=== PATIENT | female | born 1950 | race Caucasian/White ===

== ENCOUNTER → 2022-04-26 12:02 | Outpatient (CLI) | payer MEDICARE, SELFPAY ==
--- NOTE | ~2022-04-26 | XR_ITS ---
XR knee RT min 4V DATE: 04/26/2022 12:22 INDICATION: Right anterior knee pain just distal to patella TECHNIQUE: 4 views including crosstable lateral COMPARISON: None FINDINGS: There is osteopenia. There is enthesopathy of the superior pole of patella at the quadricep s tendon insertion. There is a very small subtle lucency of the proximal anterior tibia with minimal overlying soft tissu e swelling. A very subtle nondisplaced cortical fracture is not completely excluded, but this may alt ernatively be normal anatomic variation of the anterior tibial tuberosity. Clinical correlation for p oint tenderness at this site is recommended. No other fracture or dislocation or joint effusion. No periosteal reaction or bone destruction. Joint spaces are relatively preserved. No radiopaque intra-articular loose body or chondrocalcinosis. IMPRESSION: Osteopenia Superior pole patellar enthesopathy Subtle linear lucency at the proximal anterior tibial tuberosity. Diffusion diagnosis includes a subt le very small nondisplaced fracture versus anatomic variant Reviewed, dictated and finalized at location B. IMPRESSION: Osteopenia Superior pole patellar enthesopathy Subtle linear lucency at the proximal anterior tibial tuberosity. Diffusion jorgito gnosis includes a subtle very small nondisplaced fracture versus anatomic varia nt
== END ==
PROVIDERS: PCP Nurse Practitioner Family; Visit Provider Nurse Practitioner Family
DX: M25.561 Pain in right knee (principal); M85.861 Other specified disorders of bone density and structure, right lower leg
CPT/HCPCS: 73564

== ENCOUNTER → 2022-12-19 09:06 | Outpatient (CLI) | payer MEDICARE, SELFPAY ==
--- NOTE | ~2022-12-19 | XR_ITS ---
XR hip LT 2V w AP pelvis DATE: 12/19/2022 09:25 INDICATION: Left hip pain, worsening. No recent injury. TECHNIQUE: AP pelvis. AP and lateral views of left hip COMPARISON: None FINDINGS: Degenerative disc disease at L4-5 and L5-S1. Normal alignment at the pubic symphysis and sacroiliac joints. Very severe left hip osteoarthritis with obliteration of the superolateral joint space, very prominen t spurring of the acetabulum and humeral head. There is mild flattening deformity of the femoral head as well as some patchy sclerotic and cystic change of the femoral head in addition to the acetabulum . Left femoral head avascular necrosis is suggested. No fracture or dislocation of the left hip is detected. Right hip joint space is relatively well preserved. 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
== END ==
PROVIDERS: PCP Nurse Practitioner Family; Visit Provider Nurse Practitioner Family
DX: M16.12 Unilateral primary osteoarthritis, left hip (principal); M51.37 Other intervertebral disc degeneration, lumbosacral region
CPT/HCPCS: 73502

== ENCOUNTER 2023-02-13 07:30 | Outpatient (RCR) | payer MEDICARE, SELFPAY ==
--- NOTE | 2022-12-27 10:32 | PTOPEVAL1 ---
Assessment and note entered by Latoya Locke, PT Evaluation Information Assessment Status Evaluation Diagnosis pain in left hip Onset chronic, 8 years ago Subjective Information Patient is 72 year old female referred to physical therapy due to left hip pain. Patient resides with in home and reports that her pain limits her ability to perform tasks in both home and community. Patient reports pain is current at 0/10 but can increase to 10/10 with mobility. Pain is primarily in anterior hip and will radiate down left anterior leg. Reported Pain Level Pain Score 0: Self Report Additional Pain Score Comments Patient reports current pain level of 0/10. Pain can increase to 10/10 in L hip with reports of radiating symptoms down front and side of leg. Pain is worsened with standing, walking and can be relieved with rest and sitting. Patient states her pain limits her from walking increased distances, performing tasks at home. Assessment PT Clinical Summary Patient is 72 year old female referred to physical therapy due to left hip pain. Patient reports pain has been chronic for the past 8 years, recent imaging reports left hip osteoarthritis and potential avascular necrosis. Patient pain ranges from 0/10 to 10/10 with pain worse during standing /activity and relieved with rest. Postural impairments noted with left hip hike in standing and decreased weight bearing on LLE. Leg length discrepancy also noted with RLE longer than LLE however patient L pelvic unable to currently achieve neutral. Decreased range of motion noted in LLE with impairments in hip internal rotation, hip flexion, and hip extension. Patient also demonstrates weakness in L hip specifically in flexors/abductors/extensors. L hip pain, weakness, and decreased ROM limit causing impairments in gait pattern at this time. Recommending skilled PT 1-2x/wk for 6 weeks to improve LLE range of motion, strength, posture in order to decrease pain and improve ability to perform mobility in home/community. Plan of Care Interventions Electrical Stimulation,Gait Training,Hot Pack/Cold Pack,Manual Therapy,Neuro Re-education,Patient/ Caregiver Education,Therapeutic Activities, Therapeutic Exercise,Ultrasound PT Services Indicated Yes Treatment Frequency and
--- NOTE | 2022-12-27 14:29 | PCPTNOTE ---
Fax send to MD for OT order to eval and treat due to bilateral hand pain.
--- NOTE | 2023-01-16 09:56 | OTOPEVAL1 ---
Assessment and note entered by Sharonda Saul OT Evaluation Information Assessment Status Evaluation Diagnosis bilateral hand pain Onset chronic Subjective Information Pt. states that at 19 years old, doctor recognized beginnings of arthritis. Pt. states within last few years increasing pain and numbness, describes fingers specifically L 1st -3rd fingers go to sleep and wakes at night to pain feels like they are in a press . Pt. describes difficulty with daily tasks including holding coffee pot and carrying mug, and donning clothing with buttons and zippers. Pt. 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 Reported Pain Level Pain Score 0: Self Report Additional Pain Score Comments Pt. describes more pain when cold and often wakes pt. up at night while sleeping due to extreme pain, reporting often 10/10 pain, like a press gripping both hands. , hand feels like it gets locking in hook position intermittently Assessment OT Clinical Summary Pt. presents with bilateral hand pain and sensation changes, primarily secondary to chronic arthritis, limiting functional laboratory secretary and decreasing ability to participate in activities requiring sustained laboratory secretary including holding dishes, holding mugs, manipulating buttons and zippers, and writing. Skilled occupational therapy intervention indicated for pain management modalities, ADL adaptations, joint protection, and therapeutic exercises. Plan of Care Interventions Therapeutic Exercise,Manual Therapy,Therapeutic Activities,Hot Pack/Cold Pack,Self-Care/Home Management,Ultrasound,Paraffin OT Services Indicated Yes Treatment Frequency and 1 x/week for 4 weeks Duration These treatments will address the objective and functional deficits as defined above. The patient will be advanced safely and appropriately in order for the patient to progress towards his/her prior level of function. Additional exercises will be introduced and as well as a comprehensive home exercise program upon discharge, if needed, ?to ensure carryover of functional gains achieved in the clinic. This treatment plan has been reviewed and agreement upon by the patient.
--- NOTE | 2023-01-16 09:59 | OPREHPOC ---
Outpatient Therapy Plan of Care This is a Multidisciplinary Plan of Care that may contain components documented by all disciplines (PT, OT, and ST.) OT Problem 1 OT Problem #1 Knowledge Deficit OT Goal 1 Goal Pt. will be independent with instructed materials Target Visit 4 OT Problem 2 OT Problem #2 Pain OT Goal 1 Goal Pt. 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 will increase L girp strength to 63 lbs 3) Pt. will increase R lateral pinch strength to 11.5 lbs 4) Pt. will increase L lateral pinch strength to 11 lbs Target Visit 4
--- NOTE | 2023-01-23 07:49 | PCPTNOTE ---
Patient did not show up for scheduled appointment this date. Called Pt and left voicemail about missed appointment. Informed Pt of upcoming appointment with Occupational therapy tomorrow, 01/24/23 @08:15.
--- NOTE | 2023-01-25 16:06 | PTOPDC ---
Assessment and note entered by Flavia De La Torre, PT Evaluation Information Assessment Status Discharge - Pt Not Presen Diagnosis pain in left hip Reported Pain Level Assessment PT Clinical Summary Carolina called and canceled all of her PT appointments. Stated she was going to go to the gym and do the exercises. She has received 5 PT sessions for L hip pain. The goals were not addressed. Discharge PT per pt request. Plan of Care PT Services Indicated No
--- NOTE | 2023-02-13 08:04 | OTOPDC ---
Assessment and note entered by Mj Costello, LENCHO/Elie, CHT Evaluation Information Assessment Status Discharge Diagnosis bilateral hand pain Onset chronic Subjective Information Pt. reports therapy has helped her a lot with adapting ADLs to be easier on her joints. She reports she no longer is waking up in the middle of the night hand pain. She states she is having an easier time with pouring from her coffee pot and carrying a coffee mug. Reports buttons and zippers are easier now too. 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 She is very pleased with the techniques she has learned at therapy. Reported Pain Level Pain Score 0: Self Report Additional Pain Score Comments Patient reporting no pain in her hands. She reports she hasn't experienced any pain in the last week. Just reports intermittent stiffness in her hands upon waking up and even notes that this isn't everyday. Assessment OT Clinical Summary Patient has participated in 5 outpatient OT sessions focused on bilateral hand OA. Treatments have included education on adaptive equipment and techniques for ADLs, modalities, manual therapy, and gentle sow farm manager strengthening exercises. She has made excellent progress and is no longer experiencing hand pain. She has incorporated the adaptive techniques into her everyday life. No further skilled OT indicated at this time. Plan of Care OT Services Indicated No
== END 2023-02-14 08:23 | disposition home or self-care (01) ==
LOC: ANHOT 07:30
PROVIDERS: PCP Nurse Practitioner Family; Visit Provider Nurse Practitioner Family
DX: M25.541 Pain in joints of right hand (principal); M25.542 Pain in joints of left hand; M25.552 Pain in left hip
CPT/HCPCS: 97014; 97018; 97110; 97140; 97162; 97166; 97530; G0283

== ENCOUNTER 2023-09-13 11:57 | Emergency (ER) | payer MEDICARE, SELFPAY ==
[2023-09-13 11:59] VITALS: BP 166/78; PULSE 64; RESP 20; TEMP 36.4; O2SAT 100
--- NOTE | 2023-09-13 12:05 | ECG_ITS ---
Measurements Intervals [place] Rate: 66 P: 56 ME: 150 QRS: -18 QRSD: 94 T: 42 QT: 372 QTc: 390 Interpretive Statements SINUS RHYTHM LOW QRS VOLTAGE IN PRECORDIAL LEADS BORDERLINE T WAVE ABNORMALITY- ANTERIOR LEADS BASELINE ARTIFACT- I, II, III, AVR, AVL, AVF, V4-V6 BORDERLINE ECG NO PREVIOUS ECG AVAILABLE FOR COMPARISON Electronically Signed On 09-13-2023 12:25:02 BRICK TENDER by Shashank Bojorquez D.O.
[2023-09-13 12:45] LABS: Basophils Absolute Auto 0.1 K/mm3 (0.0-0.1); Basophils Percent Auto 1.3 % (0.2-1.2); Eosinophils Percent Auto 0.8 % (0-4.4); Hematocrit 41.3 % (37.0-47.0); Hemoglobin 13.8 g/dL (12.0-15.0); Immature Granulocyte Absolute 0.01 K/mm3 (0.00-0.031); Immature Granulocyte Percent A 0.2 % (0-0.5); Lymphocytes Absolute Auto 1.73 K/mm3 (0.9-3.2); Lymphocytes Percent Auto 33.2 % (18.3-44.2); Mean Corpuscular HGB Conc 33.4 g/dl (32-36); Mean Corpuscular Hemoglobin 31.2 pg (26-34); Mean Corpuscular Volume 93.2 fl (80-100); Mean Platelet Volume 9.5 fl (7.4-10.4); Monocytes Absolute Auto 0.6 K/mm3 (0.1-0.6); Monocytes Percent Auto 11.3 % (2.6-8.5); Neutrophils Absolute Auto 2.8 K/mm3 (1.3-6.7); Neutrophils Percent Auto 53.2 % (45.5-73.1); Platelet Count Result 271 k/mm3 (150-375); Red Blood Count 4.43 M/mm3 (4.2-5.4); Red Cell Distribution Width 12.9 % (11.5-14.5); White Blood Count 5.2 K/mm3 (4.5-10.0)
[2023-09-13 13:04] LABS: Alanine Aminotransferase 18 U/L (6-35); Albumin Level 4.7 g/dL (3.5-5.1); Alkaline Phosphatase 76 U/L (38-126); Anion Gap 7 mmol/L (8-16); Aspartate Amino Transferase 32 U/L (14-36); Bilirubin,Total 0.6 mg/dL (0.2-1.3); Blood Urea Nitrogen 18 mg/dL (7-17); Calcium 9.6 mg/dL (8.4-10.2); Carbon Dioxide 29 mmol/L (22-30); Chloride 102 mmol/L (98-107); Estimated CRCL calculation 61 ml/min; Estimated Glomerular Filt Rate > 60; Glucose 127 mg/dL (65-110); Potassium 3.7 mmol/L (3.4-5.0); Sodium 138 mmol/L (137-145)
[2023-09-13 16:10] VITALS: BP 148/68; PULSE 80; RESP 16; TEMP 36.7; O2SAT 98
--- NOTE | 2023-09-13 16:21 | ED.GENADULT ---
HPI - General Adult General Chief complaint: Recheck/Abnormal Lab/Rx Stated complaint: sent by PCP for low potassium Time Seen by Provider: 09/13/23 16:04 Source: patient Mode of arrival: ambulatory Limitations: no limitations History of Present Illness HPI narrative: This is a 72 Your female who presents to the ED for lab recheck. She was told by her PCP that her potassium was low and needed to go to the ER. She has been having some morning time shakiness and has been feeling anxious lately. She is denying any chest pain, shortness of breath, cough, palpitations, leg swelling. She states she is currently completely asymptomatic. Related Data Home Medications Medication Instructions Recorded Confirmed ascorbic acid (vitamin C) 1,000 mg 1 g PO DAILY 05/03/21 06/12/23 tablet aspirin 81 mg tablet,delayed 81 mg PO DAILY 05/03/21 06/12/23 release cholecalciferol (vitamin D3) 25 25 mcg PO DAILY 05/03/21 06/12/23 mcg (1,000 unit) capsule multivitamin 1 tablet PO DAILY 05/03/21 06/12/23 Allergies Allergy/AdvReac Type Severity Reaction Status Date / Time prednisone Allergy Unknown Hives Verified 09/13/23 11:58 lisinopril AdvReac Severe Weakness Verified 09/13/23 11:58 Review of Systems Review of Systems: All systems as dictated in [facility] Past Medical History Medical History (Updated 09/13/23 @ 17:17 by Jerome Harris PA-C) Acute pain of right knee Arthralgia of hands, bilateral Arthritis BMI 25.0-25.9,adult BMI 26.0-26.9,adult BMI 27.0-27.9,adult Colon cancer screening Elevated fasting glucose Encounter to establish care Fall Fatigue HTN (hypertension) Hyperlipidemia Hypokalemia Left hip pain Osteoarthritis of left hip Shaking Use of cane as ambulatory aid Vitamin D deficiency Surgical History Surgical History H/O removal of cyst Hx of tonsillectomy Family History Family History Mother Asthma Sibling Asthma Cancer Father Diabetes mellitus Heart disease Social History Social History Smoking status: Former smoker Alcohol intake: never Substance use: never Lack of Transportation: No Lack of Food: Never True Currently Unemployed: YES Living arrangements: with family Occupation/Education: retired Exam Narrative: GENERAL: Well-appearing, well-nourished, and in no acute distress. HEAD: Normocephalic, atraumatic. EYES: PERRLA and EOMI. ENT: Nares clear, no rhinorrhea or epistaxis. Mucous membranes moist. Oropharynx without tonsillar hypertrophy exudate or other lesions. NECK: Supple. No adenopathy or masses. CHEST: No respiratory distress. Clear to auscultation. No wheezes rales or rhonchi HEART: Regular rate and rhythm. No murmur heard. Normal peripheral pulses. ABDOMEN: Soft, nontender, nondistended, normal active bowel sounds. MSK: Normal range of motion. No edema. SKIN: Warm, dry, no rash. NEURO: Alert and oriented x3. No focal deficits. PSYCH: Normal mood and affect. Course Vital Signs Vital signs: Vital Signs Temperature 97.6 F 09/13/23 11:59 Pulse Rate 64 09/13/23 11:59 Respiratory Rate 20 09/13/23 11:59 Blood Pressure 166/78 H 09/13/23 11:59 Pulse Oximetry 100 09/13/23 11:59 Oxygen Delivery Room Air 09/13/23 11:59 Temperature 97.8 F 09/13/23 17:20 Pulse Rate 74 09/13/23 17:20 Respiratory Rate 16 09/13/23 17:20 Blood Pressure 150/70 H 09/13/23 17:20 Pulse Oximetry 98 09/13/23 17:20 Oxygen Delivery Room Air 09/13/23 11:59 Medical Decision Making [facility] Narrative Medical decision making narrative: this is a 72-year-old female who presents to the ED for lab recheck. She was told her potassium was low. She is currently asymptomatic. Vitals are. Her EKG does not show any evidence of acute hypokalemia. Sinus rhythm.
[2023-09-13 17:20] VITALS: BP 150/70; PULSE 74; RESP 16; TEMP 36.6; O2SAT 98
== END 2023-09-13 17:21 | disposition home or self-care (01) ==
PROVIDERS: Emergency Medicine; Emergency Provider Physician Assistant; PCP Nurse Practitioner Family
DX: Z03.89 Encounter for observation for other suspected diseases and conditions ruled out (principal); I10 Essential (primary) hypertension; E78.5 Hyperlipidemia, unspecified; E55.9 Vitamin D deficiency, unspecified; M16.12 Unilateral primary osteoarthritis, left hip; Z87.891 Personal history of nicotine dependence; R94.31 Abnormal electrocardiogram [ECG] [EKG]; Z79.82 Long term (current) use of aspirin
CPT/HCPCS: 36415; 80053; 83735; 85025; 93005; 99283

== ENCOUNTER 2023-09-17 08:57 | Emergency (ER) | payer MEDICARE, SELFPAY ==
--- NOTE | ~2023-09-17 | CT_ITS ---
EXAMINATION: CT BRAIN W/O DATE: 09/17/2023 12:20 INDICATION: Altered mental status. TECHNIQUE: Computed tomography (CT) of the head was performed without intravenous contrast. The dose- length product was 605.33 mGy-cm. Automated exposure control and iterative reconstruction technique w ere employed. COMPARISON: No prior studies for comparison. FINDINGS: Normal brain parenchymal volume for age. Normal miller-white differentiation. No acute intrac ranial hemorrhage, infarction, mass or mass effect. No ventriculomegaly or midline shift. Midline sagittal images demonstrate a normal corpus callosum, c raniovertebral junction and sella turcica. Basilar cisterns are patent. Paranasal sinuses and mastoids are pneumatized. No depressed skull fractures. IMPRESSION: 1. No acute intracranial abnormality. Reviewed, dictated and finalized at location L. TIC WELDER
[2023-09-17 09:01] VITALS: BP 162/74; PULSE 67; RESP 18; TEMP 36.6; O2SAT 100
[2023-09-17 11:12] VITALS: BP 160/66; PULSE 68; RESP 18; O2SAT 96
[2023-09-17 11:13] VITALS: PULSE 69
[2023-09-17 12:14] LABS: Basophils Absolute Auto 0.1 K/mm3 (0.0-0.1); Basophils Percent Auto 0.9 % (0.2-1.2); Eosinophils Percent Auto 0.3 % (0-4.4); Hematocrit 41.4 % (37.0-47.0); Immature Granulocyte Absolute 0.01 K/mm3 (0.00-0.031); Immature Granulocyte Percent A 0.1 % (0-0.5); Lymphocytes Absolute Auto 1.64 K/mm3 (0.9-3.2); Lymphocytes Percent Auto 24.3 % (18.3-44.2); Mean Corpuscular HGB Conc 33.8 g/dl (32-36); Mean Corpuscular Hemoglobin 31.5 pg (26-34); Mean Corpuscular Volume 93.2 fl (80-100); Mean Platelet Volume 9.3 fl (7.4-10.4); Monocytes Absolute Auto 0.7 K/mm3 (0.1-0.6); Monocytes Percent Auto 9.8 % (2.6-8.5); Neutrophils Absolute Auto 4.4 K/mm3 (1.3-6.7); Neutrophils Percent Auto 64.6 % (45.5-73.1); Platelet Count Result 252 k/mm3 (150-375); Red Blood Count 4.44 M/mm3 (4.2-5.4); Red Cell Distribution Width 12.9 % (11.5-14.5); White Blood Count 6.8 K/mm3 (4.5-10.0)
[2023-09-17 12:21] LABS: Appearance Urine Clear (Clear); Bacteria Urine None Seen /hpf; Bilirubin Urine Negative (Negative); Blood Urine Negative (Negative); Color Urine Yellow (Yellow); Glucose Urine UA Negative (Negative); Ketones Urine 1+ mg/dL (Negative); Leukocyte Esterase Ur Trace LEU/UL (Negative); Nitrate Urine Negative (Negative); Non Pathogenic Casts 0-2; Protein Urine Negative (Negative); Squamous Epithelial Cell Urine None seen /hpf (Few); Urobilinogen Urine 0.2 mg/dL (<2.0); WBC Urine 0-5 /hpf
[2023-09-17 12:22] LABS: Add Urine Microscopic? YES
[2023-09-17 12:26] LABS: Alanine Aminotransferase 18 U/L (6-35); Albumin Level 4.4 g/dL (3.5-5.1); Alkaline Phosphatase 66 U/L (38-126); Anion Gap 8 mmol/L (8-16); Aspartate Amino Transferase 27 U/L (14-36); Bilirubin,Total 0.4 mg/dL (0.2-1.3); Blood Urea Nitrogen 20 mg/dL (7-17); Calcium 9.5 mg/dL (8.4-10.2); Carbon Dioxide 28 mmol/L (22-30); Chloride 102 mmol/L (98-107); Estimated CRCL calculation 61 ml/min; Estimated Glomerular Filt Rate > 60; Glucose 143 mg/dL (65-110); Potassium 3.5 mmol/L (3.4-5.0); Sodium 138 mmol/L (137-145)
[2023-09-17 12:53] LABS: Influenza A QL RT-PCR Negative (Negative); Influenza B QL RT-PCR Negative (Negative); RSV RNA, RT-PCR Negative (Negative); SARS-CoV-2 RNA PCR Negative (Negative)
[2023-09-17 13:18] LABS: Thyroid Stimulating Hormone Reflex 0.381 uIU/mL (0.465-4.68)
[2023-09-17 13:47] LABS: Free T4 Free Thyroxine Reflex 1.32 ng/dL (0.78-2.19)
--- NOTE | 2023-09-17 13:49 | ED.GENADULT ---
HPI - General Adult General Chief complaint: Unspecified Stated complaint: need scans of the brain Time Seen by Provider: 09/17/23 11:13 History of Present Illness HPI narrative: 72-year-old female presenting to the emergency department for evaluation for increased tremor and feeling unwell this morning. Patient was concerned about the sensations so she presented to the emergency department for evaluation. Patient states she possibly has some issues with anxiety and depression but she did not feel that these were necessarily an issue when this episode started today. Related Data Home Medications Medication Instructions Recorded Confirmed ascorbic acid (vitamin C) 1,000 mg 1 g PO DAILY 05/03/21 06/12/23 tablet aspirin 81 mg tablet,delayed 81 mg PO DAILY 05/03/21 06/12/23 release cholecalciferol (vitamin D3) 25 25 mcg PO DAILY 05/03/21 06/12/23 mcg (1,000 unit) capsule multivitamin 1 tablet PO DAILY 05/03/21 06/12/23 Allergies Allergy/AdvReac Type Severity Reaction Status Date / Time prednisone Allergy Unknown Hives Verified 09/17/23 09:05 lisinopril AdvReac Severe Weakness Verified 09/17/23 09:05 Review of Systems Review of Systems: All systems reviewed & are unremarkable except as noted in HPI and below PMFSH Past Medical History Medical History (Updated 09/17/23 @ 13:54 by Shahid Moreira MD) Acute pain of right knee Arthralgia of hands, bilateral Arthritis BMI 25.0-25.9,adult BMI 26.0-26.9,adult BMI 27.0-27.9,adult Colon cancer screening Elevated fasting glucose Encounter to establish care Fall Fatigue HTN (hypertension) Hyperlipidemia Hypokalemia Left hip pain Osteoarthritis of left hip Shaking Use of cane as ambulatory aid Vitamin D deficiency Surgical History Surgical History H/O removal of cyst Hx of tonsillectomy Family History Family History Mother Asthma Sibling Asthma Cancer Father Diabetes mellitus Heart disease Social History Social History Smoking status: Former smoker Alcohol intake: never Substance use: never Lack of Transportation: No Lack of Food: Never True Currently Unemployed: YES Living arrangements: with family Occupation/Education: retired Exam Narrative: APPEARANCE: Well appearing, no pain, no distress, well-nourished. HEAD: normocephalic, atraumatic. EYES: PERRLA/EOMI, conjunctivae clear. NOSE: Normal no drainage NECK: Supple. No adenopathy, no masses. RESPIRATORY: Airway patent, respirations nonlabored. Clear to auscultation bilaterally, no rales, rhonchi, wheezing. CARDIOVASCULAR: Regular rate and rhythm without murmurs rubs or gallops. ABDOMINAL: Soft, nontender, nondistended, normal bowel sounds MUSCULOSKELETAL: Moves all extremities. Strength/ROM intact, No edema, No calf tenderness. NEURO: Alert. Cranial nerves II through XII intact. Good gait. Good coordination SKIN: Warm, dry. Normal Color PSYCHIATRIC: Normal affect Course Course Emergency Course: 72-year-old female presents emergency department for evaluation for a flushed and tremulous feeling this morning. Upon arrival to the emergency department patient states that symptoms have resolved. Patient is afebrile with no leukocytosis and a stable hemoglobin, patient has no acute abnormalities on her CMP, patient's TSH was mildly low but free T4 is within normal limits and total T3 is pending. Patient was updated of the results of the labs. The patient was also negative for influenza RSV and COVID and patient has a normal UA. Head CT showed no acute abnormality. Patient was encouraged close follow-up with her primary care physician for additional outpatient cardiac testing including Holter monitor. Patient was also encouraged to discuss anxiety and depression symptoms with her primary care physician. Vit
[2023-09-17 14:33] LABS: Total Triiodothyronine (T3) 1.16 NG/ML (0.97-1.69)
== END 2023-09-17 14:14 | disposition home or self-care (01) ==
PROVIDERS: Emergency Provider Emergency Medicine; PCP Nurse Practitioner Family
DX: R25.1 Tremor, unspecified (principal); Z20.822 Contact with and (suspected) exposure to COVID-19; I10 Essential (primary) hypertension; E78.5 Hyperlipidemia, unspecified; E55.9 Vitamin D deficiency, unspecified; M16.12 Unilateral primary osteoarthritis, left hip; Z87.891 Personal history of nicotine dependence
CPT/HCPCS: 36415; 70450; 80053; 81001; 84439; 84443; 84480; 85025; 87637; 99284

== ENCOUNTER 2023-10-10 13:33 | Outpatient (CLI) | payer MEDICARE, SELFPAY ==
--- NOTE | 2023-10-15 12:16 | WPDHOLTEREM ---
Holter/Event Monitor Holter/Event Monitor Date of procedure: 10/10/23 Holter/Event Procedure: 24 Hr Holter Monitor Indications: Essential hypertension Conclusion: 1. 24 hour holter monitor on 10/10/23. 2. Predominant rhythm is sinus rhythm. HR range 38-108 bpm; average HR 55 bpm. HR at 38 bpm was at 03:56. 3. There are 577 premature supraventricular complexes and 62 supraventricular couplets. There is 1 episode of atrial tachycardia at 152 bpm lasting 6 beats at 15:06. 4. There are 6 premature ventricular complexes. No ventricular tachycardia. 5. No sinoatrial or atrioventricular blocks. No significant pauses greater than 2 seconds. 6. No symptoms available for correlation.
== END 2023-10-10 13:34 | disposition home or self-care (01) ==
LOC: ANHCARD 13:34
PROVIDERS: PCP Nurse Practitioner Family; Visit Provider Nurse Practitioner Family
DX: R00.2 Palpitations (principal); I10 Essential (primary) hypertension
CPT/HCPCS: 93225; 93226

== ENCOUNTER 2023-12-02 13:13 | Outpatient (CLI) | payer MEDICARE, SELFPAY ==
--- NOTE | 2023-12-02 13:26 | ECHO_ITS ---
Patient Info Name: Carolina Yuen Age: 73 years : 1950 Gender: Female Ht: 64 in Wt: 131 lbs BSA: 1.64 m2 HR: 77 bpm BP: 168 / 85 mmHg Heart Rhythm: Sinus Rhythm Technical Quality: Good Exam Date: 12/02/2023 1:30 PM Exam Location: Echo Lab Patient Status: Outpatient Admit Date: 12/02/2023 Staff Ordering Physician: Shashank Bojorquez DO Supervisor Home Energy Consultant: Deysi Sanders RDCS Attending Provider: Shashank Bojorquez DO Referring Physician: Reno CASTELLANO; Exam Type: CA echo doppler color flow Study Info Indications R00.2 - Palpitations Complete two-dimensional, color flow and Doppler transthoracic echocardiogram is performed. Summary 1. Complete two-dimensional, color flow and Doppler transthoracic echocardiogram is performed. 2. Left ventricular chamber dimension is normal. 3. Left ventricular systolic function is normal, estimated at 65-70%. 4. The left ventricular diastolic function is grade I diastolic dysfunction. 5. E/e' 7 is not elevated. 6. There is mild aortic valve sclerosis. 7. The mitral valve has mildly calcified annulus. 8. No pulmonary hypertension, estimated pulmonary arterial systolic pressure is 33 mmHg. Left Ventricle E/e' 7 is not elevated. Left ventricular chamber dimension is normal. Left ventricular systolic function is normal, estimated at 65-70%. The left ventricular diastolic function is grade I diastolic dysfunction. Right Ventricle Right ventricular systolic function is normal and with normal TAPSE 2.0 cm. Right ventricular chamber dimension is normal. Left Atria Left atrial chamber dimension is normal. Right Atria Right atrial chamber dimension is normal. Aortic Valve The aortic valve is trileaflet. There is mild aortic valve sclerosis. There is no aortic valve stenosis. There is no aortic valve regurgitation. Pulmonic Valve There is no pulmonic regurgitation. Mitral Valve The mitral valve has mildly calcified annulus. There is no mitral valve stenosis. There is no mitral valve regurgitation. Tricuspid Valve There is no tricuspid valve regurgitation. No pulmonary hypertension, estimated pulmonary arterial systolic pressure is 33 mmHg. Pericardium/Pleural There is no pericardial effusion. Inferior Vena Cava Normal inferior vena cava with >50% collapse upon inspiration consistent with normal right atrial pressure, 5 mmHg. Aorta The aortic root size at the sinus of Valsalva is normal. Left Ventricular Outflow Tract Name Value Normal LVOT 2D LVOT Diameter 2.0 cm LVOT Doppler LVOT Peak Gradient 8 mmHg LVOT Mean Gradient 3 mmHg LVOT VTI 30 cm LVOT VTI/AV VTI Ratio 0.8 LVOT Stroke Volume 96 ml LVOT CO 6.5 l/min LVOT CI 4.0 l/min/m2 Pulmonic Valve Name Value Normal RVOT Doppler RVOT Peak Gradien
== END 2023-12-02 13:14 | disposition home or self-care (01) ==
LOC: ANHCARD 13:14
PROVIDERS: PCP Nurse Practitioner Family; Visit Provider Internal Medicine Cardiovascular Disease
DX: R00.2 Palpitations (principal)
CPT/HCPCS: 93306

== ENCOUNTER 2023-12-18 09:28 | Outpatient (CLI) | payer MEDICARE, SELFPAY ==
--- NOTE | ~2023-12-18 | XR_ITS ---
XR hip LT min 2V 12/18/2023 09:57 Indication: Osteoarthritis of the left hip Procedure: 2 views left hip Comparison: 12/19/2022 Findings: There is severe osteoarthritis of the left hip with superior lateral migration of the femor al head. No fracture or traumatic malalignment. No soft tissue abnormality. Impression: 1: Severe osteoarthritis of the left hip. Reviewed, dictated and finalized at location B. Impression: 1: Severe osteoarthritis of the left hip.
== END 2023-12-18 09:29 | disposition home or self-care (01) ==
LOC: ANHIMG 09:33
PROVIDERS: PCP Nurse Practitioner Family; Visit Provider Nurse Practitioner Family
DX: M16.12 Unilateral primary osteoarthritis, left hip (principal)
CPT/HCPCS: 73502

== ENCOUNTER 2024-02-18 08:33 | Outpatient (CLI) | payer MEDICARE, SELFPAY ==
--- NOTE | ~2024-02-18 | NM_ITS ---
EXAMINATION: NM yan stress w perfusion DATE: 02/18/2024 11:14 INDICATION: Abnormal electrocardiogram. Fatigue. TECHNIQUE: Rest images were obtained following intravenous administration of 9.8 mCi Tc99m tetrofosmi n (Myoview). The patient was infused intravenously with Lexiscan (regadenoson). Then, 31.5 mCi Tc99m tetrofosmin (Myoview) was administered intravenously, and stress images were obtained. Data was recon structed into short axis and horizontal and vertical long axis SPECT images. Gated SPECT images were also obtained. COMPARISON: None. FINDINGS: There is no definite reversible or fixed perfusion abnormality to suggest ischemia or infar ction. There is no segmental wall motion abnormality. Left ventricular ejection fraction measures > 70%. IMPRESSION: 1. No definite ischemia or infarct. 2. Normal left ventricular ejection fraction measuring >70%. Reviewed, dictated and finalized at location A.
--- NOTE | 2024-02-18 08:37 | EST_ITS ---
Patient Info Name: Carolina Yuen Age: 73 years : 1950 Gender: Female Ht: 64 in Wt: 136 lbs BSA: 1.68 m2 HR: 65 bpm BP: 157 / 68 mmHg Heart Rhythm: Sinus Rhythm Exam Date: 02/18/2024 9:51 AM Exam Location: Echo Lab Patient Status: Outpatient Admit Date: 02/18/2024 Staff Ordering Physician: Shashank Bojorquez DO Attending Provider: Shsahank Bojorquez DO Exercise Technologist: Kateryna Johnson CT Exercise Physician: Shashank Bojorquez DO Exam Type: CA stress yan w NM Study Info Indications Z01.810 - Encounter for preprocedural cardiovascular examination A regadenoson stress test was performed. Summary 1. 1. Negative lexiscan stress test for ischemic ST changes by ECG criteria. 2. 2. Baseline hypertension. 3. 3. Nuclear scan to follow and will be reported separately. Please correlate with it. 4. 4. Patient informed of the above results. Protocol: Lexiscan Stress ECG Details Stage: REST Duration (min): 2 min : 21 sec HR (bpm): 63 SBP (mmHg): 157 DBP (mmHg): 68 Stage: REST Duration (min): 10 min : 42 sec HR (bpm): 70 SBP (mmHg): 157 DBP (mmHg): 68 Stage: STAGE 1 Duration (min): 0 min : 59 sec HR (bpm): 104 SBP (mmHg): 157 DBP (mmHg): 68 Stage: RECOVERY Duration (min): 1 min : 0 sec HR (bpm): 106 SBP (mmHg): 157 DBP (mmHg): 66 Stage: RECOVERY Duration (min): 2 min : 0 sec HR (bpm): 93 SBP (mmHg): 157 DBP (mmHg): 66 Stage: RECOVERY Duration (min): 3 min : 0 sec HR (bpm): 91 SBP (mmHg): 154 DBP (mmHg): 65 Stage: RECOVERY Duration (min): 3 min : 5 sec HR (bpm): 94 SBP (mmHg): 154 DBP (mmHg): 65 Rest HR: 70 bpm Peak HR: 111 bpm Rest Sys BP: 157 mmHg Peak Sys BP: 157 mmHg Max Pred HR: 146 bpm % Max Pred HR: 76 % Target HR: 124 bpm Max RPP: 17,427 bpm*mmHg Termination Reason: Completed protocol Cardiac Symptoms: Shortness of breath Total Time: 1 min : 0 sec Rest Cosme BP: 68 mmHg Peak Cosme BP: 66 mmHg Total Dose: 0.4 mg Resting ECG Sinus rhythm, IRBBB. Stress ECG No ST changes. Arrhythmias None. Report Signatures
== END 2024-02-18 08:34 | disposition home or self-care (01) ==
PROVIDERS: PCP Nurse Practitioner Family; Visit Provider Internal Medicine Cardiovascular Disease
DX: Z01.810 Encounter for preprocedural cardiovascular examination (principal); R53.83 Other fatigue; I10 Essential (primary) hypertension
CPT/HCPCS: 78452; 93017; A9502; J2785

== ENCOUNTER 2024-02-21 11:20 | Outpatient (CLI) | payer MEDICARE, SELFPAY ==
[2024-02-21 11:44] LABS: Hematocrit 41.2 % (37.0-47.0); Hemoglobin 13.6 g/dL (12.0-15.0)
[2024-02-21 11:54] LABS: Albumin Level 4.7 g/dL (3.5-5.1); Estimated Glomerular Filt Rate > 60; Glucose 94 mg/dL (65-110)
[2024-02-21 12:12] LABS: Urine Cotinine NEGATIVE
== END 2024-02-21 11:21 | disposition home or self-care (01) ==
PROVIDERS: PCP Nurse Practitioner Family; Visit Provider Orthopaedic Surgery
DX: E87.6 Hypokalemia (principal); R73.01 Impaired fasting glucose; I47.19 Other supraventricular tachycardia; M16.12 Unilateral primary osteoarthritis, left hip
CPT/HCPCS: 80307; 82040; 82565; 82947; 85014; 85018

== ENCOUNTER 2024-03-13 09:50 | Outpatient (CLI) | payer MEDICARE, SELFPAY ==
[2024-03-13 11:25] LABS: Basophils Absolute Auto 0.1 K/mm3 (0.0-0.1); Basophils Percent Auto 1.6 % (0.2-1.2); Eosinophils Absolute Auto 0.1 K/mm3 (0-0.3); Eosinophils Percent Auto 1.4 % (0-4.4); Hematocrit 42.4 % (37.0-47.0); Hemoglobin 14.1 g/dL (12.0-15.0); Lymphocytes Absolute Auto 1.95 K/mm3 (0.9-3.2); Lymphocytes Percent Auto 33.7 % (18.3-44.2); Mean Corpuscular HGB Conc 33.3 g/dl (32-36); Mean Corpuscular Volume 96.1 fl (80-100); Mean Platelet Volume 9.6 fl (7.4-10.4); Monocytes Absolute Auto 0.7 K/mm3 (0.1-0.6); Monocytes Percent Auto 12.3 % (2.6-8.5); Platelet Count Result 239 k/mm3 (150-375); Red Blood Count 4.41 M/mm3 (4.2-5.4); Red Cell Distribution Width 13.1 % (11.5-14.5); White Blood Count 5.8 K/mm3 (4.5-10.0)
[2024-03-13 11:28] LABS: Anion Gap 10 mmol/L (4-12); Blood Urea Nitrogen 19 mg/dL (7-17); Calcium 9.8 mg/dL (8.4-10.2); Carbon Dioxide 31 mmol/L (22-30); Chloride 97 mmol/L (98-107); Estimated Glomerular Filt Rate > 60; Glucose 112 mg/dL (65-110); Potassium 3.6 mmol/L (3.4-5.0); Sodium 138 mmol/L (137-145)
[2024-03-13 11:36] LABS: Urine Cotinine NEGATIVE
[2024-03-13 11:56] LABS: Hemoglobin A1C 5.9 % (<5.7)
[2024-03-13 13:00] LABS: MRSA (PCR) NOT DETECTED (NOT DETECTE)
== END 2024-03-13 09:51 | disposition home or self-care (01) ==
LOC: ANHSURGERY 09:54
PROVIDERS: Anesthesiology; PCP Nurse Practitioner Family; Visit Provider Orthopaedic Surgery
DX: M16.12 Unilateral primary osteoarthritis, left hip (principal); Z51.81 Encounter for therapeutic drug level monitoring; Z01.818 Encounter for other preprocedural examination; Z79.899 Other long term (current) drug therapy
CPT/HCPCS: 36415; 80048; 80307; 83036; 85025; 87641

== ENCOUNTER 2024-05-19 19:53 | Emergency (ER) | payer MEDICARE, SELFPAY ==
[2024-05-19 20:44] VITALS: BP 155/80; PULSE 84; RESP 18; TEMP 36.6; O2SAT 98
[2024-05-19 23:55] VITALS: BP 137/73; PULSE 63; RESP 18; O2SAT 98
[2024-05-20 00:42] LABS: Add Urine Microscopic? YES; Appearance Urine Cloudy (Clear); Bacteria Urine None Seen /hpf; Bilirubin Urine Negative (Negative); Blood Urine 1+ (Negative); Color Urine Yellow (Yellow); Glucose Urine UA Negative (Negative); Ketones Urine 1+ mg/dL (Negative); Leukocyte Esterase Ur 2+ LEU/UL (Negative); Nitrate Urine Negative (Negative); Non Pathogenic Casts 0-2; Protein Urine Negative (Negative); Specific Grav Ur 1.019 (1.001-1.035); Squamous Epithelial Cell Urine None Seen /hpf (Few); Urobilinogen Urine 0.2 mg/dL (<2.0); pH Urine 5.5 (5.0-9.0)
[2024-05-20 00:43] LABS: Basophils Absolute Auto 0.1 K/mm3 (0.0-0.1); Basophils Percent Auto 0.9 % (0.2-1.2); Eosinophils Percent Auto 0.4 % (0-4.4); Hematocrit 39.8 % (37.0-47.0); Hemoglobin 13.7 g/dL (12.0-15.0); Immature Granulocyte Absolute 0.02 K/mm3 (0.00-0.031); Immature Granulocyte Percent A 0.2 % (0-0.5); Lymphocytes Percent Auto 28.6 % (18.3-44.2); Mean Corpuscular HGB Conc 34.4 g/dl (32-36); Mean Corpuscular Hemoglobin 31.9 pg (26-34); Mean Corpuscular Volume 92.8 fl (80-100); Mean Platelet Volume 9.5 fl (7.4-10.4); Monocytes Percent Auto 12.6 % (2.6-8.5); Neutrophils Absolute Auto 4.6 K/mm3 (1.3-6.7); Neutrophils Percent Auto 57.3 % (45.5-73.1); Platelet Count Result 232 k/mm3 (150-375); Red Blood Count 4.29 M/mm3 (4.2-5.4)
[2024-05-20 01:02] LABS: Alanine Aminotransferase 17 U/L (6-35); Albumin Level 4.7 g/dL (3.5-5.1); Alkaline Phosphatase 75 U/L (38-126); Anion Gap 9 mmol/L (4-12); Aspartate Amino Transferase 30 U/L (14-36); Bilirubin,Total 0.4 mg/dL (0.2-1.3); Blood Urea Nitrogen 20 mg/dL (7-17); Calcium 9.3 mg/dL (8.4-10.2); Carbon Dioxide 28 mmol/L (22-30); Chloride 93 mmol/L (98-107); Estimated CRCL calculation 71 ml/min; Estimated Glomerular Filt Rate > 60; Glucose 115 mg/dL (65-110); Magnesium 2.1 mg/dL (1.6-2.3); Potassium 3.1 mmol/L (3.4-5.0); Sodium 130 mmol/L (137-145)
[2024-05-20 01:13] LABS: Influenza A QL RT-PCR Negative (Negative); Influenza B QL RT-PCR Negative (Negative); SARS-CoV-2 RNA PCR Negative (Negative)
[2024-05-20] MEDS: POTASSIUM CHLORIDE 20 MEQ PACKET (FOR LIQUID) 40 MEQ PO (01:28)
--- NOTE | 2024-05-20 01:31 | ED.GENADULT ---
HPI - General Adult General Chief complaint: Recheck/Abnormal Lab/Rx Stated complaint: blood pressure problems Time Seen by Provider: 05/20/24 00:09 History of Present Illness HPI narrative: Patient is a 73-year-old female who presents to the emergency department this evening complaining of generally feeling unwell. Denies any specific symptoms including any chest pain or shortness of breath, any nausea, vomiting or abdominal pain. Patient states that she has noticed that her blood pressure has been running higher than usual with her systolic being in the 160s to 170s which is high for her. Patient has been monitoring her blood pressure regularly and does take blood pressure medications. Denies any urinary symptoms including dysuria or hematuria denies any URI symptoms or flu-like symptoms at home. Denies any fevers or chills at home. Patient states that she just been feeling weak, denies any focal weakness, numbness and tingling. No additional symptoms or concerns at this time. Related Data Home Medications Medication Instructions Recorded Confirmed ascorbic acid (vitamin C) 1,000 mg 1 g PO DAILY 05/03/21 03/25/24 tablet aspirin 81 mg tablet,delayed 81 mg PO DAILY 05/03/21 03/25/24 release multivitamin 1 tablet PO DAILY 05/03/21 03/25/24 cholecalciferol (vitamin D3) 25 50 mcg PO DAILY 09/26/23 03/25/24 mcg (1,000 unit) capsule Allergies Allergy/AdvReac Type Severity Reaction Status Date / Time prednisone Allergy Unknown Hives Verified 05/19/24 20:52 lisinopril AdvReac Severe Weakness, Verified 05/19/24 20:52 NAUSEAS, SHAKES Review of Systems Review of Systems: All systems are reviewed and are negative unless stated otherwise in the HPI. [facility] Past Medical History Medical History Acute pain of right knee Arthralgia of hands, bilateral Arthritis BMI 25.0-25.9,adult BMI 26.0-26.9,adult BMI 27.0-27.9,adult Colon cancer screening Elevated fasting glucose Encounter to establish care Fall Fatigue HTN (hypertension) Hyperlipidemia Hypokalemia Left hip pain Low TSH level Osteoarthritis of left hip Palpitations Shaking Use of cane as ambulatory aid Vitamin D deficiency Surgical History Surgical History H/O removal of cyst Hx of tonsillectomy Family History Family History Mother Asthma Sibling Asthma Cancer Father Diabetes mellitus Heart disease Social History Social History Smoking packs per day: 2 Smoking cigarettes per day: 40.0 Years smoked: 5 Smoking pack-years: 10.00 Smoking status: Former smoker Tobacco type: cigarettes Smoking end date: 12/24/69 Alcohol intake: never Substance use: never Lack of Transportation: No Lack of Food: Never True Currently Unemployed: YES Living arrangements: with family Additional living arrangements comments: [facility] Occupation/Education: retired Spiritual care concerns: No Exam Narrative: General: Alert, awake, afebrile, in no acute distress. HEENT: PERRL, no rhinorrhea, no post nasal drip, oropharynx clear. Cardiovascular: Regular rate and rhythm, no murmurs, rubs or gallops, no peripheral edema. Respiratory: Clear to auscultation bilaterally, no tachypnea, no wheezing, no rhonchi, no rubs, no respiratory distress. Abdomen: Soft, nontender, nondistended, no rebound, no guarding, no peritoneal signs. Musculoskeletal: No joint swelling or deformity, normal muscle tone. Skin: No rashes or petechia, no signs of infection. Neurological: Alert and oriented to person, place, and time. Follows all commands. No focal deficits, speech is clear and fluent. Course Vital Signs Vital signs: Vital Signs Temperature 97.9 F 05/19/24 20:44 Pulse Rate 84 05/19/24 20:44 Respirato
[2024-05-20 01:58] VITALS: BP 117/76; PULSE 86; RESP 16; TEMP 37.1; O2SAT 98
== END 2024-05-20 02:00 | disposition home or self-care (01) ==
PROVIDERS: Emergency Provider Emergency Medicine; PCP Nurse Practitioner Family
DX: E87.6 Hypokalemia (principal); N39.0 Urinary tract infection, site not specified; I10 Essential (primary) hypertension; Z20.822 Contact with and (suspected) exposure to COVID-19; M19.90 Unspecified osteoarthritis, unspecified site; E78.5 Hyperlipidemia, unspecified
CPT/HCPCS: 36415; 80053; 81001; 83735; 85025; 87086; 87088; 87636; 99283; A9270

== ENCOUNTER 2024-06-02 10:00 | Outpatient (CLI) | payer MEDICARE, SELFPAY ==
[2024-06-02 11:01] LABS: Sodium 136 mmol/L (137-145)
[2024-06-02 11:08] LABS: Urine Cotinine NEGATIVE
[2024-06-02 12:08] LABS: MRSA (PCR) NOT DETECTED (NOT DETECTE)
== END 2024-06-02 10:01 | disposition home or self-care (01) ==
LOC: ANHSURGERY 10:05
PROVIDERS: Anesthesiology; PCP Nurse Practitioner Family; Visit Provider Orthopaedic Surgery
DX: M16.12 Unilateral primary osteoarthritis, left hip (principal); R79.89 Other specified abnormal findings of blood chemistry; Z01.818 Encounter for other preprocedural examination
CPT/HCPCS: 36415; 80307; 84295; 86850; 86900; 86901; 87641

== ENCOUNTER 2024-06-04 00:06 | Day surgery (SDC) | payer MEDICARE, SELFPAY ==
[2024-03-13 09:55] VITALS: BP 135/70; PULSE 67; RESP 16; TEMP 36.8; O2SAT 99
--- NOTE | 2024-03-13 09:57 | PC.NURSE ---
Report to the Outpatient Waiting Room, entrance under the green pavilion located off [facility], at time __08:30AM____ on date ___04/07/24____. Planned Procedure Time: ___10:30AM . Time changes happen often and if your time is changed the preop area will call you the afternoon before. - You and your visitor will be asked to self-screen and do not enter if you have any COVID symptoms. - A mask is optional within the hospital at this time. Patients may have clear liquids (water, carbonated beverages, clear teas, apple juice) until 3 hours prior to surgery with a maximum of 20 ounces. - No food from midnight until time of surgery Take the following medications with a SIP of water the morning of surgery: AMLODIPINE PER ANESTHESIA DO NOT STOP ANY OF YOUR OTHER PRESCRIPTION MEDICATIONS PRIOR TO SURGERY ?EXCEPT THE FOLLOWING Medications to discontinue per physician HOLD ALL VITAMINS, SUPPLEMENTS AND ASA FOR [address] KURTZ . Date to take last dose___03/30/24 ____ Please no make-up, nail lao, hairspray, perfume, deodorant, or body powder the day of surgery. No jewelry (including any body piercings) or valuables the day of surgery, leave them at home. Please take a shower or bath the night before, or the morning of, surgery with an antibacterial soap. Wear comfortable, loose fitting clothing. - Jewelry must be removed prior to entering the operating room. Rings and piercings that are not removed may be cut off. - The hospital will not accept responsibility for valuables. - Please leave all valuables, including medications, at home the day of surgery. If you are going home after surgery, a licensed cement truck driver must drive you home. - NO public transportation without another adult if you receive anesthesia. - We recommend that an adult stay with you for 24 hours following discharge. - We also recommend that you do not drive, make important decision, drink alcoholic beverages, or take any drugs that were not prescribed by your health care provider for at least 24 hours after your discharge time. Follow any additional instructions given to you from your surgeon. If you or anyone in your household have experienced Covid symptoms in the past week, please notify your surgeon or the nurse liaison at the phone number below for possible testing. Telephone instructions given to _PATIENT AND HUSBAND and asked if any additional questions and then verbalized understanding. Patient advised to call surgeon office or pre surgery nurse liaison [phone] if any additional questions.
[2024-03-13 10:07] VITALS: BMI 23.1
[2024-05-29 13:32] VITALS: BMI 22.6
--- NOTE | 2024-05-29 13:52 | PC.NURSE ---
Report to the Outpatient Waiting Room, entrance under the green pavilion located off [facility], at time __08:30___ on date _06/04/24 . Planned Procedure Time: __10:30am .? Time changes happen often and if your time is changed the preop area will call you the afternoon before. - You and your visitor will be asked to self-screen and do not enter if you have any COVID symptoms. Please call surgeon if you need to reschedule. - A mask is optional within the hospital at this time. Patients may have clear liquids (water, carbonated beverages, clear teas, apple juice) until 3 hours prior to surgery with a maximum of 20 ounces. - No food from midnight until time of surgery and no smoking (0730am) Take only the following medications with a SIP of water on the morning of surgery: ___Amlodipine DO NOT STOP ANY OF YOUR OTHER PRESCRIPTION MEDICATIONS PRIOR TO SURGERY EXCEPT THE FOLLOWING Medications to discontinue per physician ____Aspirin [address] Brooks, Pt is aware today to take NO MORE ASA- office notified and aware pt took it up till today. Pt will stop ASA and proceed w surgery as planned. Date to take last dose_05/29/24. Pt to hold all vitamins, supplements, herbs 3 days prior to surgery per Anesthesia. Date of last dose is 05/31/24. Please no make-up, nail lao, hairspray, perfume, deodorant, or body powder the day of surgery.? No jewelry (including any body piercings) or valuables the day of surgery, leave them at home.? Please take a shower or bath the night before, or the morning of, surgery with an antibacterial soap.? Wear comfortable, loose fitting clothing.? Children are encouraged to wear pajamas. - Jewelry must be removed prior to entering the operating room.? Rings and piercings that are not removed may be cut off. - The hospital will not accept responsibility for valuables.? - Please leave all valuables, including medications, at home the day of surgery. If you are going home after surgery, a licensed motor vehicle escort driver must drive you home.? - NO public transportation without another adult if you receive anesthesia. - We recommend that an adult stay with you for 24 hours following discharge. - We also recommend that you do not drive, make important decision, drink alcoholic beverages, or take any drugs that were not prescribed by your health care provider for at least 24 hours after your discharge time. For Pediatric surgeries, we recommend two adults accompany the child home. Follow any additional instructions given to you from your surgeon. Telephone instructions given to ___patient and asked if any additional questions and then verbalized understanding. Patient advised to call surgeon office or pre surgery nurse liaison [phone] if any additional questions.
[2024-06-04] VITALS (12 sets, daily range): BP systolic 110–151; BP diastolic 50–80; PULSE 60–74; RESP 12–20; TEMP 35.8–36.8; O2SAT 97–100
--- NOTE | ~2024-06-04 | XR_ITS ---
EXAMINATION: XR hip LT min 2V DATE: 06/04/2024 11:48 INDICATION: Left hip arthroplasty. Postop. TECHNIQUE: 2 views of left hip were obtained. COMPARISON: Left hip radiographs 03/25/2024 FINDINGS: There is a total left hip arthroplasty in near-anatomic alignment. No fracture. IMPRESSION: 1. Total left hip arthroplasty in near-anatomic alignment. Reviewed, dictated and finalized at location A.
--- NOTE | 2024-06-04 09:19 | W.PM.PROC2 ---
Procedure Note - Detailed Date of Procedure 06/04/24 Pre-op Diagnosis primary oa left hip Surgeon Suresh Brooks MD
[2024-06-04] MEDS: ACETAMINOPHEN 500 MG TABLET 1000 MG PO (09:20)
--- NOTE | 2024-06-04 09:20 | WPDHPUPDATE1 ---
History and Physical Update Update Date/Time: 06/04/24 09:20 History and Physical has been reviewed, including an updated exam of the patient. There are NO changes in the patient's condition. Risks, benefits, and alternatives have been discussed and questions answered. Patient agrees to proceed with procedure.
[2024-06-04] MEDS: LACTATED RINGERS 1,000 ML 30 ML IV CONT ×2 (09:30→11:38)
[2024-06-04] MEDS: TRANEXAMIC ACID 1,000MG/ISO100 1,000 MG/100 ML BAG 200 MG IVPB (09:34)
--- NOTE | 2024-06-04 09:41 | WPDANESEPPF ---
Anes - Initial Pre Proc Eval Procedure: Operation Date: 06/04/24 10:30 Proposed Procedures p Left Total Hip Arthroplasty - Surseh Brooks MD Date/Time: 06/04/24 09:41 Surgeon: Suresh Brooks MD Pre Op Diagnosis: primary oa left hip Patient Data Age: 73 Gender: F Height: 1.63 m Weight: 60 kg Last Vital Signs Temp 36.8 C 03/13/24 09:55 Pulse 67 03/13/24 09:55 Resp 16 03/13/24 09:55 BP 135/70 03/13/24 09:55 Pulse Ox 99 03/13/24 09:55 O2 Del Method Room Air 03/13/24 09:55 Allergies Allergy/AdvReac Type Severity Reaction Status Date / Time prednisone Allergy Unknown Hives Verified 06/04/24 09:02 lisinopril AdvReac Severe Weakness, Verified 06/04/24 09:02 NAUSEAS, SHAKES Home Medications Medication Instructions Recorded Confirmed Type ascorbic acid (vitamin C) 1,000 mg 1 g PO DAILY 05/03/21 06/04/24 History tablet aspirin 81 mg tablet,delayed 81 mg PO DAILY 05/03/21 06/04/24 History release multivitamin 1 tablet PO DAILY 05/03/21 06/04/24 History amlodipine 5 mg tablet 5 mg PO DAILY #30 tabs 09/26/23 06/04/24 Rx cholecalciferol (vitamin D3) 25 50 mcg PO DAILY 09/26/23 06/04/24 History mcg (1,000 unit) capsule atorvastatin 10 mg tablet 10 mg PO DAILY #90 tabs 04/14/24 06/04/24 Rx hydrochlorothiazide 25 mg tablet 25 mg PO DAILY #90 tabs 04/14/24 06/04/24 Rx cephalexin 500 mg capsule 500 mg PO Q12H 5 days #10 caps 05/20/24 06/04/24 Rx Patient hx anesthesia problems: none Family hx anesthesia problems: none Results Review: All pre-operative results and documents have been reviewed as part of the pre-operative evaluation. [facility] Past Medical History Medical History Acute pain of right knee Arthralgia of hands, bilateral Arthritis BMI 25.0-25.9,adult BMI 26.0-26.9,adult BMI 27.0-27.9,adult Colon cancer screening Elevated fasting glucose Encounter to establish care Fall Fatigue HTN (hypertension) Hyperlipidemia Hypokalemia Left hip pain Low TSH level Osteoarthritis of left hip Palpitations Shaking Use of cane as ambulatory aid UTI (urinary tract infection) Vitamin D deficiency Surgical History Surgical History H/O removal of cyst Hx of tonsillectomy Family History Family History Mother Asthma Sibling Asthma Cancer Father Diabetes mellitus Heart disease Social History Social History Smoking packs per day: 2 Smoking cigarettes per day: 40.0 Years smoked: 5 Smoking pack-years: 10.00 Smoking status: Former smoker Tobacco type: cigarettes Smoking end date: 12/24/69 Alcohol intake: never Substance use: never Lack of Transportation: No Lack of Food: Never True Currently Unemployed: YES Living arrangements: with family Additional living arrangements comments: [facility] Occupation/Education: retired Spiritual care concerns: No Anes - Eval Final PreProcedure Day of Procedure 06/04/24 09:41 Patient weight: normal Heart: regular rate and rhythm Lungs: clear to auscultation Airway: Mallampati scale class II Neurological: alert and oriented Last oral intake: >/= 8 hours ASA classification: III Emergent: no Anesthetic plan: proceed Anesthesia type and monitoring: general ETT and standard monitoring Results Review: All pre-operative results and documents have been reviewed as part of the pre-operative evaluation. Informed Consent: The patient's anesthetic plan and its attendant risks and benefits were discussed with the patient/family/POA. Questions were solicited and answers provided to the satisfaction of the patient/family/POA.
[2024-06-04] MEDS: ceFAZolin 2 GM/D5W 50 ML 2 GM/50 ML BAG IVPB ×2 (10:02→17:14)
[2024-06-04] MEDS: SODIUM CHLORIDE 0.9% IV 37.7 ML, MORPHINE SULFATE INJ (*CRX) 2 MG, ROPivacaine HCL 1% 2... INFILTRATE (10:25)
[2024-06-04] MEDS: TRANEXAMIC ACID 1,000 MG/10 ML AMPUL 1000 MG IV PUSH (11:32)
--- NOTE | 2024-06-04 12:01 | SUR.PHASEI ---
LT HIP AP & LAT DONE IN PACU.
[2024-06-04] MEDS: fentaNYL CITRATE INJ (*CRX) 100 MCG/2 ML VIAL 25 MCG IV PUSH ×4 (12:04→12:30)
--- NOTE | 2024-06-04 12:45 | PC.NURSE ---
Returned from OR per [ ]. Report received from [KELSIE].
[2024-06-04] MEDS: SODIUM CHLORIDE 0.9% IV 1,000 ML 125 ML IV CONT (13:11)
[2024-06-04] MEDS: ACETAMINOPHEN 325 MG TABLET 650 MG PO ×3 (13:12→23:56)
[2024-06-04] MEDS: ONDANSETRON INJ 4 MG/2 ML VIAL IV PUSH ×2 (13:28→17:05)
--- NOTE | 2024-06-04 13:40 | ADMGEN ---
This patient, Carolina Yuen, was admitted to [facility] Surg Room 304-02. Patient/family oriented to hospital policies and general routines including ID bracelet, bed and alarms, visiting hours, pain management, procedures, bathroom and other care routines, personal items, smoking policy, room service/diet, and visiting hours. Information on how to activate the Rapid Response Team has been discussed. Patient/Family are encouraged to report perceived risks to care and to ask questions if they do not understand what they are told or what they should do. Report from [facility] in PACU
--- NOTE | 2024-06-04 14:14 | W.PM.PROC2 ---
Procedure Note - Detailed Date of Procedure 06/04/24 Pre-op Diagnosis DJD left hip Post-op Diagnosis Same Procedure Performed Left Total Hip Arthroplasty Surgeon Suresh Brooks MD Caramel Maker Katelyn Breen PA-C Anesthesia General Findings End-stage arthritis left hip. Fair bone quality. Description of Procedure The patient was given preoperative antibiotics. A general anesthetic was administered. The patient was carefully placed in the lateral decubitus position on the PEG board. The shoulders and hips were carefully positioned for component and leg length positioning reference. The hip was prepped and draped in the usual sterile fashion. A longitudinal incision was created over the posterior aspect of the greater trochanter. Careful dissection was brought down through the deep fascia with electrocautery. A minimally invasive optimized posterior approach to the hip was performed. The short external rotators and capsule were taken down in an L-shaped capsulotomy. The tissue was tagged for later repair using number 2 high strength suture. The femoral neck was measured and taken in situ. The femoral head was removed. The acetabulum was carefully exposed. The inferior capsule was released. The labrum was resected. The acetabulum was sequentially reamed to the intended cup size. The cup was impacted into position with excellent press-fit. Typical anatomic landmarks, including the bony contact points as well as the inferior transverse acetabular ligament were used to confirm cup positioning with preoperative templating. Attention was turned to the femur, which was carefully exposed. The hip was reamed and then broached sequentially. Excellent press-fit was obtained with the broach. The hip was trialed. Measurements were utilized, including the lesser trochanter as well as the center of the femoral head and the tip of the trochanter, and excellent assessment of the offset and leg lengths were confirmed. The real component was impacted into position. Trialing confirmed appropriate leg length and offset with soft tissue balancing as well apparent feel of the leg, both at the knee and the heel. Soft tissues were assessed using the the iliotibial band. Reduction of the posterior capsule and external rotators were also used as a secondary assessment. The hip was copiously irrigated with pulsatile lavage periodically throughout the procedure. The real components were then assembled and reduced. The hip was stable throughout typical maneuvers, including extension, external rotation to 70 degrees, the position of sleep as well as flexion to 90 degrees with internal rotation past 35 degrees. The shake test confirmed stability without impingement. Osteophytes were removed as necessary. The short external rotators and capsule were repaired back to the posterior trochanter through drill holes. The deep fascia was repaired with running number 2 barbed suture, followed by 2-0 Stratafix suture and 3-0 Stratafix suture in the dermis. Steri-Strips were placed on the skin, followed by a sterile occlusive dressing. There were no complications. Meticulous hemostasis was maintained with the AquaMantys device. The patient was brought to the recovery room in stable condition. There were no complications. Physician assistant controller, Katelyn Breen PA-C, required for surgery; including patient positioning, draping, tissue retraction, maintaining instrument position, hip dislocation/ relocation, wound closure, and dressing placement. Implants The Accolade II hip stem, 127 degree size 4 , was utilized with excellent press-fit. The 52 mm Trident II acetabular component was impacted with excellent press-fit stability. 10 degree elevated polyethylene liner the +2.5, 36 mm Biolox ceramic femoral head was utilized. Estimated Blood Loss 300 Drains No Packing No Pathology None sent Complications No immediate complications Condition Stable Disposition PACU [facility]
--- NOTE | 2024-06-04 15:51 | PCPTNOTE ---
Attempted PT evaluation at 1440 pt refused due to drowsiness but agreed to therapist returning at later time. Therapist returned at 1528 pt refused again due to fatigue. Pt educated on getting OOB some time this evening with assist from nursing staff. RN aware. Will follow.
[2024-06-04] MEDS: MELOXICAM 7.5 MG TABLET PO (16:41)
[2024-06-04] MEDS: SENNA/DOCUSATE SODIUM TABLET 2 TAB PO (16:41)
[2024-06-04] MEDS: FAMOTIDINE 20 MG TABLET PO (20:36)
[2024-06-04] MEDS: ASPIRIN 81 MG ENTERIC TABLET PO (20:36)
[2024-06-05 00:25] VITALS: BP 118/52; PULSE 67; RESP 18; TEMP 36.3; O2SAT 97
[2024-06-05] MEDS: SODIUM CHLORIDE 0.9% IV 1,000 ML 125 ML IV CONT (00:25)
[2024-06-05] MEDS: ceFAZolin 2 GM/D5W 50 ML 2 GM/50 ML BAG IVPB ×2 (01:55→09:33)
[2024-06-05] MEDS: ACETAMINOPHEN 325 MG TABLET 650 MG PO (05:24)
[2024-06-05 05:40] VITALS: BP 138/53; PULSE 68; RESP 16; TEMP 36.3; O2SAT 98
[2024-06-05 06:42] LABS: Basophils Percent Auto 0.2 % (0.2-1.2); Hematocrit 34.5 % (37.0-47.0); Hemoglobin 11.4 g/dL (12.0-15.0); Immature Granulocyte Absolute 0.05 K/mm3 (0.00-0.031); Immature Granulocyte Percent A 0.4 % (0-0.5); Lymphocytes Percent Auto 9.9 % (18.3-44.2); Mean Corpuscular Hemoglobin 31.6 pg (26-34); Mean Corpuscular Volume 95.6 fl (80-100); Mean Platelet Volume 9.4 fl (7.4-10.4); Monocytes Absolute Auto 1.7 K/mm3 (0.1-0.6); Monocytes Percent Auto 12.9 % (2.6-8.5); Neutrophils Absolute Auto 10.1 K/mm3 (1.3-6.7); Neutrophils Percent Auto 76.6 % (45.5-73.1); Platelet Count Result 178 k/mm3 (150-375); Red Blood Count 3.61 M/mm3 (4.2-5.4); Red Cell Distribution Width 13.1 % (11.5-14.5); White Blood Count 13.1 K/mm3 (4.5-10.0)
[2024-06-05 06:58] LABS: Anion Gap 3 mmol/L (4-12); Blood Urea Nitrogen 14 mg/dL (7-17); Calcium 8.9 mg/dL (8.4-10.2); Carbon Dioxide 28 mmol/L (22-30); Chloride 106 mmol/L (98-107); Estimated CRCL calculation 60 ml/min; Estimated Glomerular Filt Rate > 60; Glucose 101 mg/dL (65-110); Potassium 3.6 mmol/L (3.4-5.0); Sodium 137 mmol/L (137-145)
--- NOTE | 2024-06-05 07:51 | PM.DS ---
DS: Admitting Diagnosis Discharge Date 06/05/24 Admitting Diagnosis Hip arthritis DS: Discharge Diagnosis Discharge Diagnosis (1) Status post total hip replacement, left: Code(s): Z96.642 - Presence of left artificial hip joint Status: Acute Assessment and Plan: Postop day 1: Total hip arthroplasty. Patient tolerated procedure well. No complications. Pain manageable with pain medication. No numbness or tingling. We had a lengthy discussion regarding postoperative wound care, limitations, expectations, and exercises. Patient shows good understanding. Patient has had initial physical therapy and is tolerating it well. DVT prophylaxis: 81 mg baby aspirin b.i.d. for 14 days. Short frequent walks. Pain medication: Percocet. Meloxicam. Patient has followup appointment with Dr. Brooks in 3 weeks DS: Summary Hospital Course Reason for hospitalization: Total hip arthroplasty Hospital Course: Patient tolerated procedure well. Has had initial PT/OT. Patient did have bleeding from incision site. Dressing removed, cleaned with Betadine, steri strips reapplied, dressing reapplied. No drainage at the time of discharge. Status at Discharge Functional status at discharge: uses cane/walker Overall status at discharge: patient is progressing back to baseline Time Spent with Patient Time attestation: Total time spent providing and/or coordinating discharge services: Exam Narrative: Thin, tall Male. Resting comfortably in chair. Wearing compression socks bilaterally. Dressing dry and intact with no drainage. Moderate swelling. No ecchymosis. No erythema. No hematoma. Range of motion limited due to pain. Calf nontender. Thigh nontender. Neurologic status intact. No varicosities. Distal pulses palpable. DS: Data Data Completed and Pending Labs on day of discharge: Labs from last 24 hours 06/05/24 06:24 WBC 13.1 H RBC 3.61 L Hgb 11.4 L Hct 34.5 L MCV 95.6 MCH 31.6 MCHC 33.0 RDW 13.1 Plt Count 178 MPV 9.4 Immature Gran % (Auto) 0.4 Neut % (Auto) 76.6 H Lymph % (Auto) 9.9 L [place] % (Auto) 12.9 H Eos % (Auto) 0.0 Baso % (Auto) 0.2 Lymph # (Auto) 1.30 [place] # (Auto) 1.7 H Eos # (Auto) 0.0 Baso # (Auto) 0.0 Abs Immat Gran (auto) 0.05 H Absolute Neuts (auto) 10.1 H Absolute Nucleated RBC 0.000 Nucleated RBC % 0.0 Sodium 137 Potassium 3.6 Chloride 106 Carbon Dioxide 28 Anion Gap 3 L BUN 14 D Creatinine 0.60 L Estim Creat Clear Calc 60 Estimated GFR > 60 Glucose 101 Calcium 8.9 Discharge Plan Discharge Patient Disposition: Home, Self-Care Discharge Instructions: See green instruction sheets Stand Alone Forms: General Discharge Instructions Follow-up/Referrals: Katelyn Breen PA [Physician Edi Consultant] - Discharge Medications: New meloxicam 15 mg tablet 15 mg PO DAILY Qty: 30 0RF Rx Instructions: Cut in half. Take 1/2 in morning and 1/2 at night. Take with food. Stop if stomach upset. aspirin 81 mg tablet,delayed release (DR/EC) 81 mg PO BID 14 Days Qty: 28 0RF oxycodone-acetaminophen 5-325 mg tablet 1 - 2 tablet PO Q4-6H MDD 6 PRN (Reason: pain) Qty: 30 0RF Continued amlodipine 5 mg tablet 5 mg PO DAILY Qty: 30 11RF Rx Instructions: AM cholecalciferol (vitamin D3) 25 mcg (1,000 unit) capsule 50 mcg PO DAILY multivitamin Tablet 1 tablet PO DAILY ascorbic acid (vitamin C) 1,000 mg tablet 1 g PO DAILY cephalexin 500 mg capsule 500 mg PO Q12H 5 Days Qty: 10 0RF Patient Comments: Completed atorvastatin 10 mg tablet 10 mg PO DAILY Qty: 90 3RF hydrochlorothiazide 25 mg tablet 25 mg PO DAILY Qty: 90 3RF Held aspirin 81 mg tablet,delayed release (DR/EC) 81 mg PO DAILY Hold Instructions: Resume on 06/18/24. Teice a day for 2 weeks then back to normal dose.
[2024-06-05] MEDS: oxyCODONE/ACETAMINOPHEN (*CRX) 10-325 MG TABLET 1 TAB PO (08:07)
[2024-06-05] MEDS: CYCLOBENZAPRINE HCL 10 MG TABLET PO (08:08)
[2024-06-05] MEDS: ASPIRIN 81 MG ENTERIC TABLET PO (09:28)
[2024-06-05] MEDS: MELOXICAM 7.5 MG TABLET PO (09:28)
[2024-06-05] MEDS: amLODIPine BESYLATE 5 MG TABLET PO (09:28)
[2024-06-05] MEDS: ATORVASTATIN 10 MG TABLET PO (09:28)
[2024-06-05] MEDS: CHOLECALCIFEROL 1,000 UNITS TABLET 2000 UNITS PO (09:29)
[2024-06-05] MEDS: SENNA/DOCUSATE SODIUM TABLET 2 TAB PO (09:29)
[2024-06-05] MEDS: FAMOTIDINE 20 MG TABLET PO (09:30)
[2024-06-05] MEDS: polyethylene glycoL 3350 17 GM POWD.PACK PO (09:30)
[2024-06-05] MEDS: hydroCHLOROthiazide 25 MG TABLET PO (09:30)
[2024-06-05] MEDS: MULTIVITAMINS THERAPEUTIC TAB (*BKC) 1 TABLET PO (09:30)
[2024-06-05] MEDS: ASCORBIC ACID 500 MG TABLET 1000 MG PO (09:33)
--- NOTE | 2024-06-05 10:57 | WPDANESPN ---
Anes - Prog Note Post-Op Date/Time: 06/05/24 10:57 Cardiovascular status: normal Respiratory status: normal Airway patency: baseline Mental status: baseline Post-Op hydration status: normal Vital Signs: Last Vital Signs Temp 36.3 C L 06/05/24 05:40 Pulse 68 06/05/24 05:40 Resp 16 06/05/24 05:40 BP 138/53 L 06/05/24 05:40 Pulse Ox 98 06/05/24 05:40 O2 Del Method Room Air 06/05/24 07:50 O2 Flow Rate 8 06/04/24 12:10 Pain Score (VAS): 11/02 I/O: Intake & Output 06/04/24 06/05/24 06/05/24 23:59 07:59 15:59 Intake Total 7861 387 6901 Output Total 2 Balance 6429 278 9849 Laboratory Tests 06/05/24 06:24 06/05/24 06:24 06/05/24 06:24 WBC 13.1 H RBC 3.61 L Hgb 11.4 L Hct 34.5 L MCV 95.6 MCH 31.6 MCHC 33.0 RDW 13.1 Plt Count 178 MPV 9.4 Immature Gran % (Auto) 0.4 Neut % (Auto) 76.6 H Lymph % (Auto) 9.9 L [place] % (Auto) 12.9 H Eos % (Auto) 0.0 Baso % (Auto) 0.2 Lymph # (Auto) 1.30 [place] # (Auto) 1.7 H Eos # (Auto) 0.0 Baso # (Auto) 0.0 Abs Immat Gran (auto) 0.05 H Absolute Neuts (auto) 10.1 H Absolute Nucleated RBC 0.000 Nucleated RBC % 0.0 Sodium 137 Potassium 3.6 Chloride 106 Carbon Dioxide 28 Anion Gap 3 L BUN 14 D Creatinine 0.60 L Estim Creat Clear Calc 60 Estimated GFR > 60 Glucose 101 Calcium 8.9 Post-procedural complaints: nausea (no treatment needed) Patient Feedback: Patient satisfied with anesthetic care.
== END 2024-06-05 11:40 | disposition home or self-care (01) ==
LOC: ANHSURGERY 11:39 → ANH3MEDSUR 13:07
PROVIDERS: Physician Assistant Surgical; PCP Nurse Practitioner Family; Visit Provider Orthopaedic Surgery
PROC: (CPT 27130; principal; 2024-06-04 10:30)
DX: M16.12 Unilateral primary osteoarthritis, left hip (principal); M25.752 Osteophyte, left hip; I10 Essential (primary) hypertension; E78.5 Hyperlipidemia, unspecified; E87.6 Hypokalemia; E55.9 Vitamin D deficiency, unspecified; Z79.82 Long term (current) use of aspirin; Z98.890 Other specified postprocedural states; Z87.891 Personal history of nicotine dependence; Z80.9 Family history of malignant neoplasm, unspecified; Z82.49 Family history of ischemic heart disease and other diseases of the circulatory system
CPT/HCPCS: 27130; 36415; 73502; 80048; 80307; 84295; 85025; 86850; 86900; 86901; 87641; 97110; 97161; 97165; 97530; 97535; A9270; C1776; J0171; J0690; J1100; J1171; J1885; J2003; J2270; J2405; J2704; J2795; J3010; J7030; J7120

== ENCOUNTER 2024-06-26 09:15 | Outpatient (CLI) | payer MEDICARE, SELFPAY ==
--- NOTE | ~2024-06-26 | XR_ITS ---
AP view of the pelvis and AP and lateral views of the left hip Clinical history: Arthroplasty follow-up COMPARISON: 06/04/2024 Findings: No acute fracture or dislocation is seen. Left hip arthroplasty in place. There is minimal degenerative change of the right hip joint and lower lumbar spine. Soft tissues are unremarkable. Impression: No acute abnormality. Left hip arthroplasty in place. Reviewed, dictated and finalized at location M. Impression: No acute abnormality. Left hip arthroplasty in place.
== END 2024-06-26 09:16 | disposition home or self-care (01) ==
PROVIDERS: PCP Nurse Practitioner Family; Visit Provider Orthopaedic Surgery
DX: Z47.1 Aftercare following joint replacement surgery (principal)
CPT/HCPCS: 73502

== ENCOUNTER 2024-07-05 17:17 | Emergency (ER) | payer MEDICARE, SELFPAY ==
[2024-07-05 17:18] VITALS: BP 157/79; PULSE 86; RESP 18; TEMP 36.8; O2SAT 99
--- NOTE | 2024-07-05 19:54 | PC.NURSE ---
Patient came up to triage desk with spouse and advised that they were leaving. Patient had a steady gait upon leaving ED.
== END 2024-07-05 20:30 | disposition left against medical advice (07) ==
PROVIDERS: PCP Nurse Practitioner Family
DX: I10 Essential (primary) hypertension (principal)
CPT/HCPCS: 99199

== ENCOUNTER 2024-07-20 15:31 | Emergency (ER) | payer MEDICARE, SELFPAY ==
--- NOTE | ~2024-07-20 | XR_ITS ---
EXAMINATION: XR chest 2V Exam Date/Time: 07/20/2024 18:20 TIRE MOUNTER HISTORY: sob, flushed, shaky Comparison: None. RESULT: Lines, tubes, and devices: None. Lungs and pleura: Clear. Cardiomediastinal silhouette: Unremarkable. Other: No acute osseous or upper abdominal finding. IMPRESSION: No acute cardiopulmonary process. Reviewed, dictated and finalized at location K. MOUNTER
[2024-07-20 15:36] VITALS: BP 147/60; PULSE 85; RESP 15; TEMP 36.7; O2SAT 100
--- NOTE | 2024-07-20 17:23 | ED.RECABL ---
HPI - Recheck/Abnormal Lab/Rx General Chief Complaint: Recheck/Abnormal Lab/Rx Stated Complaint: htn Time Seen by Provider: 07/20/24 17:29 Focused HPI: Patient is a 73-year-old female who presents the ED with report of anxiety and hypertension. Patient is on HCTZ and Amlodipine for her blood pressure. She reports over the last 2 weeks, she has been having episodes of elevated blood pressures, shakiness, flushed sensation, shortness of breath within about an hour of taking the medications. States she feels like she is in a cloud when the sensation comes on. She saw her PCP for this and was prescribed buspirone to be taken as needed for these episodes. Patient states she took this for a couple of days, but has not taken any further. Patient does admit to feeling very anxious. Denies chest pain. Denies recent fevers. GENERAL: Anxious - appearing, thin, and in no acute distress. HEAD: Normocephalic, atraumatic. CHEST: Clear to auscultation. ?No respiratory distress. HEART: Regular rate and rhythm.? NEURO: ?Alert and oriented x3. PSYCHIATRIC: Very anxious and tremulous. Patient screened in triage and initial orders placed.? ?Additional care and disposition to be based upon?diagnostic testing and treatment. Source: patient Mode of arrival: ambulatory Limitations: no limitations Related Data Home Medications Medication Instructions Recorded Confirmed ascorbic acid (vitamin C) 1,000 mg 1 g PO DAILY 05/03/21 07/24/24 tablet aspirin 81 mg tablet,delayed 81 mg PO DAILY 05/03/21 07/24/24 release multivitamin 1 tablet PO DAILY 05/03/21 07/24/24 cholecalciferol (vitamin D3) 25 50 mcg PO DAILY 09/26/23 07/24/24 mcg (1,000 unit) capsule Allergies Allergy/AdvReac Type Severity Reaction Status Date / Time prednisone Allergy Unknown Hives Verified 07/24/24 10:52 lisinopril AdvReac Severe Weakness, Verified 07/24/24 10:52 NAUSEAS, SHAKES PMFSH Past Medical History Medical History Acute pain of right knee Anxiety Arthralgia of hands, bilateral Arthritis BMI 25.0-25.9,adult BMI 26.0-26.9,adult BMI 27.0-27.9,adult Colon cancer screening Elevated fasting glucose Encounter to establish care Fall Fatigue HTN (hypertension) Hyperlipidemia Hypokalemia Left hip pain Low TSH level Osteoarthritis of left hip Palpitations Shaking Use of cane as ambulatory aid UTI (urinary tract infection) Vitamin D deficiency Surgical History Surgical History H/O removal of cyst Hx of tonsillectomy Family History Family History Mother Asthma Sibling Asthma Cancer Father Diabetes mellitus Heart disease Social History Social History Smoking packs per day: 2 Smoking cigarettes per day: 40.0 Years smoked: 5 Smoking pack-years: 10.00 Smoking status: Former smoker Tobacco type: cigarettes Smoking end date: 12/24/69 Alcohol intake: never Substance use: never Do You Feel Safe in your Home?: Yes Lack of Transportation: No Lack of Food: Never True Current Housing: I Have Housing Concerned About Future Housing: No Difficulty Paying Gas/Electric Bills: No Difficulty Paying for Meds: No Currently Unemployed: No Education: Don't Know Difficulty w/ Childcare or Family Care: No Living arrangements: with family Additional living arrangements comments: [facility] Occupation/Education: retired Spiritual care concerns: No Course Vital Signs Vital signs: Vital Signs Temperature 98.1 F 07/20/24 15:36 Pulse Rate 85 07/20/24 15:36 Respiratory Rate 15 07/20/24 15:36 Blood Pressure 147/60 H 07/20/24 15:36 Pulse Oximetry 100 07/20/24 15:36 Temperature 98.1 F 07/20/24 15:36 Pulse Rate 85 07/20/24 15:36 Respiratory Rate 15 07/20/24 15:36 Blood Pressure 147/60 H 07/20/24 15:36 Pulse Oximetry 100 07/20/24 15:36 MDM - Recheck/Abnormal Lab/Rx MDM Narrative Medical decision making narrative: MSE by RICKI in triage. Patient declined Ativan. Lab Data 07/20/24 17:35 07/20/24 17:35 Labs: Lab Results 07/20/24 Range/Units 17:35 WBC 6.6 (4.5-10.0) K/mm3 RBC 4.27 (4.2-5.4) M/mm3 Hgb 14.1 (12.0-15.0) g/dL Hct 40.5 (37.0-47.0) % MCV 94.8 (80-100) fl MCH 33.0 (26-34) pg MCHC 34.8 (32-36) g/dl RDW 13.2 (11.5-14.5) % Plt Count 320 D (150-375) k/mm3 MPV 9.3 (7.4-10.4) fl Immature Gran % (Auto) 0.3 (0-0.5) % Neut % (Auto) 58.8 (45.5-73.1) % Lymph % (Auto) 24.8 (18.3-44.2) % [place] % (Auto) 13.6 H (2.6-8.5) % Eos % (Auto) 1.4 (0-4.4) % Baso % (Auto) 1.1 (0.2-1.2) % Lymph # (Auto) 1.63 (0.9-3.2) K/mm3 [place] # (Auto) 0.9 H (0.1-0.6) K/mm3 Eos # (Auto) 0.1 (0-0.3) K/mm3 Baso # (Auto) 0.1 (0.0-0.1) K/mm3 Abs Immat Gran (auto) 0.02 (0.00-0.031) K/mm3 Absolute Neuts (auto) 3.9 (1.3-6.7) K/mm3 Absolute Nucleated RBC 0.000 (0.0-0.012) K/mm3 Nucleated RBC % 0.0 (0.0-0.2) % Sodium 135 L (137-145) mmol/L Potassium 3.1 L (3.4-5.0) mmol/L Chloride 100 (98-107) mmol/L Carbon Dioxide 28 (22-30) mmol/L Anion Gap 7 (4-12) mmol/L BUN 20 H (7-17) mg/dL Creatinine 0.50 L (0.7-1.0) mg/dL Estim Creat Clear Calc 71 ml/min Estimated GFR > 60 (59 - ) Glucose 123 H (65-110) mg/dL Calcium 9.2 (8.4-10.2) mg/dL Magnesium 2.1 (1.6-2.3) mg/dL Total Bilirubin 0.5 (0.2-1.3) mg/dL AST 31 (14-36) U/L ALT 16 (6-35) U/L Alkaline Phosphatase 107 (38-126) U/L Total Protein 8.0 (6.3-8.2) g/dL Albumin 4.6 (3.5-5.1) g/dL TSH (Reflex) 0.641 (0.465-4.68) uIU/mL Discharge Plan Discharge Clinical Impression: Anxiety, Situational hypertension Patient Disposition: Elopement After Seen by Prov Condition: Guarded Prognosis Prescriptions: No Action cholecalciferol (vitamin D3) 25 mcg (1,000 unit) capsule 50 mcg PO DAILY buspirone 5 mg tablet 5 mg PO BID Qty: 60 5RF aspirin 81 mg tablet,delayed release (DR/EC) 81 mg PO DAILY Hold Instructions: Resume on 06/18/24. Teice a day for 2 weeks then back to normal dose. multivitamin Tablet 1 tablet PO DAILY ascorbic acid (vitamin C) 1,000 mg tablet 1 g PO DAILY losartan 50 mg tablet 50 mg PO DAILY Qty: 30 5RF atorvastatin 10 mg tablet 10 mg PO DAILY Qty: 90 3RF amlodipine 5 mg tablet 5 mg PO DAILY Qty: 30 11RF Rx Instructions: AM Follow-up/Referrals: Xochitl Shen NP [Primary Care Provider] -
[2024-07-20 18:03] LABS: Basophils Absolute Auto 0.1 K/mm3 (0.0-0.1); Basophils Percent Auto 1.1 % (0.2-1.2); Eosinophils Absolute Auto 0.1 K/mm3 (0-0.3); Eosinophils Percent Auto 1.4 % (0-4.4); Hematocrit 40.5 % (37.0-47.0); Hemoglobin 14.1 g/dL (12.0-15.0); Immature Granulocyte Absolute 0.02 K/mm3 (0.00-0.031); Immature Granulocyte Percent A 0.3 % (0-0.5); Lymphocytes Absolute Auto 1.63 K/mm3 (0.9-3.2); Lymphocytes Percent Auto 24.8 % (18.3-44.2); Mean Corpuscular HGB Conc 34.8 g/dl (32-36); Mean Corpuscular Volume 94.8 fl (80-100); Mean Platelet Volume 9.3 fl (7.4-10.4); Monocytes Absolute Auto 0.9 K/mm3 (0.1-0.6); Monocytes Percent Auto 13.6 % (2.6-8.5); Neutrophils Absolute Auto 3.9 K/mm3 (1.3-6.7); Neutrophils Percent Auto 58.8 % (45.5-73.1); Platelet Count Result 320 k/mm3 (150-375); Red Blood Count 4.27 M/mm3 (4.2-5.4); Red Cell Distribution Width 13.2 % (11.5-14.5); White Blood Count 6.6 K/mm3 (4.5-10.0)
[2024-07-20 18:37] LABS: Alanine Aminotransferase 16 U/L (6-35); Albumin Level 4.6 g/dL (3.5-5.1); Alkaline Phosphatase 107 U/L (38-126); Anion Gap 7 mmol/L (4-12); Aspartate Amino Transferase 31 U/L (14-36); Bilirubin,Total 0.5 mg/dL (0.2-1.3); Blood Urea Nitrogen 20 mg/dL (7-17); Calcium 9.2 mg/dL (8.4-10.2); Carbon Dioxide 28 mmol/L (22-30); Chloride 100 mmol/L (98-107); Estimated CRCL calculation 71 ml/min; Estimated Glomerular Filt Rate > 60; Glucose 123 mg/dL (65-110); Magnesium 2.1 mg/dL (1.6-2.3); Potassium 3.1 mmol/L (3.4-5.0); Sodium 135 mmol/L (137-145)
[2024-07-20 18:48] LABS: Thyroid Stimulating Hormone Reflex 0.641 uIU/mL (0.465-4.68)
--- NOTE | 2024-07-20 21:24 | PC.NURSE ---
Visitor with pt. states that pt. is leaving [facility] d/t long wait time. Pt is with 2x family members and A&Ox4 at time of d/c.
== END 2024-07-20 21:29 | disposition left against medical advice (07) ==
LOC: ANHED 21:27
PROVIDERS: Physician Assistant; PCP Nurse Practitioner Family
DX: I10 Essential (primary) hypertension (principal); F41.9 Anxiety disorder, unspecified; E78.5 Hyperlipidemia, unspecified; E55.9 Vitamin D deficiency, unspecified; M16.12 Unilateral primary osteoarthritis, left hip; Z87.440 Personal history of urinary (tract) infections; Z87.891 Personal history of nicotine dependence; Z79.82 Long term (current) use of aspirin; Z79.899 Other long term (current) drug therapy
CPT/HCPCS: 36415; 71046; 80053; 83735; 84443; 85025; 99283

== ENCOUNTER 2024-07-22 10:43 | Outpatient (CLI) | payer MEDICARE, SELFPAY ==
--- NOTE | ~2024-07-22 | XR_ITS ---
XR hip LT 2V w AP pelvis Ordering provider: Suresh Brooks MD History: . Z96.642 - Presence of left artificial hip joint X 6 WEEKS . Comparison: None. FINDINGS: BONES: No acute fracture or dislocation. HIP JOINT SPACES: Left hip arthroplasty. Mild to moderate right hip osteoarthritic changes. SACROILIAC JOINT SPACES/LUMBAR SPINE: The sacroiliac joint spaces are normal. Mild degenerative dug[place] es of the visualized lower lumbar spine. PUBIC SYMPHYSIS: Normal. SOFT TISSUES: Normal. IMPRESSION: No acute osseous abnormality. Left hip arthroplasty. Reviewed, dictated and finalized at location A. [facility] [employer]
== END 2024-07-22 10:44 | disposition home or self-care (01) ==
PROVIDERS: PCP Nurse Practitioner Family; Visit Provider Orthopaedic Surgery
DX: Z96.642 Presence of left artificial hip joint (principal)
CPT/HCPCS: 73502

== ENCOUNTER 2024-08-04 16:39 | Emergency (ER) | payer MEDICARE, SELFPAY ==
--- NOTE | ~2024-08-04 | XR_ITS ---
EXAMINATION: XR chest 2V Exam Date/Time: 08/04/2024 17:28 INSTRUCTIONAL ASSISTANT HISTORY: weakness Comparison: 07/20/2024. RESULT: Lines, tubes, and devices: None. Lungs and pleura: Senescent changes, otherwise clear. Cardiomediastinal silhouette: Stable. Other: No acute osseous or upper abdominal finding. IMPRESSION: No acute cardiopulmonary process. Reviewed, dictated and finalized at location K. RUCTIONAL ASSISTANT
--- NOTE | ~2024-08-04 | CT_ITS ---
EXAMINATION: CT brain wo con DATE: 08/04/2024 20:32 INDICATION: shakiness, dizziness . TECHNIQUE: Computed tomography (CT) of the head was performed without intravenous contrast. The mA wa s adjusted according to patient size. Iterative reconstruction technique was employed. The dose-lengt h product was 681.00 mGy-cm. COMPARISON: 09/17/2023. FINDINGS: No acute intracranial hemorrhage or extra-axial fluid collection. No hydrocephalus, mass, or herniation. No acute ischemic infarct. Unremarkable dural venous sinus attenuation. No acute osseous abnormality. The aerated spaces are clear. Mild atrophy and chronic white matter change. Atherosclerotic intracranial calcification. IMPRESSION: No acute intracranial process. Reviewed, dictated and finalized at location [facility]
[2024-08-04 16:57] VITALS: BP 143/75; PULSE 88; RESP 20; TEMP 36.6; O2SAT 100
--- NOTE | 2024-08-04 17:01 | ED_ITS ---
HPI - General Adult General Chief complaint: Unspecified <Tsering Gil PA-C - Last Filed: 08/05/24 12:25> Stated complaint: shaky, dizzy, cough <Tsering Gil PA-C - Last Filed: 08/05/24 12:25> Time Seen by Provider: 08/04/24 17:01 <Tsering Gil PA-C - Last Filed: 08/05/24 12:25> Focused HPI: This is a 73 year old female that presents to the ER for dizziness. Reports she gets terrible shaking that does not stop. Then she starts to feel dizzy. She was seen a couple of weeks ago for same. She was recently started on something for stress. Today her symptoms were worse and unrelieved which prompted her to be seen. Reports she has been coughing. Denies chest pain or shortness of breath. GENERAL: Anxious HEAD: Normocephalic, atraumatic. CHEST: Clear to auscultation. ?No respiratory distress. HEART: Regular rate and rhythm.? NEURO: ?Alert and oriented x3. Patient screened in triage and initial orders placed.? ?Additional care and disposition to be based upon?diagnostic testing and treatment. <Tsering Gil PA-C - Last Filed: 08/05/24 12:25> Focused HPI: This is a 73 year old female that presents to the ER for dizziness. Reports she gets terrible shaking that does not stop. Then she starts to feel dizzy. She was seen a couple of weeks ago for same. She was recently started on something for stress. Today her symptoms were worse and unrelieved which prompted her to be seen. Reports she has been coughing. Denies chest pain or shortness of breath. GENERAL: Anxious HEAD: Normocephalic, atraumatic. CHEST: Clear to auscultation. ?No respiratory distress. HEART: Regular rate and rhythm.? NEURO: ?Alert and oriented x3. Patient screened in triage and initial orders placed.? ?Additional care and disposition to be based upon?diagnostic testing and treatment. <TOD Quinn Last Filed: 08/05/24 00:55> Source: patient and old records reviewed <TOD Quinn Last Filed: 08/05/24 00:55> Mode of arrival: ambulatory <Vonnie Germain PA-C - Last Filed: 08/05/24 00:55> Limitations: no limitations <Vonnie Germain PA-C - Last Filed: 08/05/24 00:55> History of Present Illness HPI narrative: Agree with above HPI. Seen in the ED 07/20, but refused ativan for anxiety and left after initial MSE in triage. states she did follow-up with her primary care doctor after last ED visit and her buspirone dose was cut in half. Thought symptoms may be related to medication side effects. Patient reports symptoms have continued. She does feel very anxious. Denies focal weakness or numbness, lightheadedness, headache, vision changes, chest pain, shortness of breath. < TOD Quinn Last Filed: 08/05/24 00:55> Related Data Home medications: Home Medications ?Medication ?Instructions ?Recorded ?Confirmed ?Last Taken ?Type ascorbic acid (vitamin C) 1,000 mg 1 g PO DAILY 05/03/21 07/24/24 05/31/24 History tablet aspirin 81 mg tablet,delayed 81 mg PO DAILY 05/03/21 07/24/24 05/28/24 History release multivitamin 1 tablet PO DAILY 05/03/21 07/24/24 05/31/24 History cholecalciferol (vitamin D3) 25 50 mcg PO DAILY 09/26/23 07/24/24 05/31/24 History mcg (1,000 unit) capsule <sTering Gil PA-C - Last Filed: 08/05/24 12:25> Allergies/adverse reactions: Allergies Allergy/AdvReac Type Severity Reaction Status Date / Time prednisone Allergy Unknown Hives Verified 07/24/24 10:52 lisinopril AdvReac Severe Weakness, Verified 07/24/24 10:52 NAUSEAS, SHAKES <TOD Peterson Last Filed: 08/05/24 12:25> Review of Systems 2 Review of Systems: All systems reviewed & are unremarkable except as noted in HPI. <TOD Quinn Last Filed: 08/05/24 00:55> All systems reviewed & are unremarkable except as noted in HPI and below < Vonnie Germain PA-C - Last Filed: 08/05/24 00:55> [facility] Past Medical History Medical History: Medical History Anxiety UTI (urinary tract infection) Low TSH level Palpitations Hypokalemia Shaking Arthralgia of hands, bilateral Left hip pain Fall Acute pain of right knee BMI 25.0-25.9,adult BMI 26.0-26.9,adult Elevated fasting glucose Use of cane as ambulatory aid BMI 27.0-27.9,adult Colon cancer screening Vitamin D deficiency Osteoarthritis of left hip Encounter to establish care Hyperlipidemia Fatigue Arthritis HTN (hypertension) <Tsering Gil PA-C - Last Filed: 08/05/24 12:25> Surgical History Surgical History: Surgical History Hx of tonsillectomy H/O removal of cyst <Tsering Gil PA-C - Last Filed: 08/05/24 12:25> Family History Family History: Family History Mother Asthma Sibling Asthma Cancer Father Diabetes mellitus Heart disease <Tsering Gil PA-C - Last Filed: 08/05/24 12:25> Social History Social History: Social History Smoking packs per day: 2 Smoking cigarettes per day: 40.0 Years smoked: 5 Smoking pack-years: 10.00 Smoking status: Former smoker Tobacco type: cigarettes Smoking end date: 12/24/69 Alcohol intake: never Substance use: never Do You Feel Safe in your Home?: Yes Lack of Transportation: No Lack of Food: Never True Current Housing: I Have Housing Concerned About Future Housing: No Difficulty Paying Gas/Electric Bills: No Difficulty Paying for Meds: No Currently Unemployed: No Education: Don't Know Difficulty w/ Childcare or Family Care: No Living arrangements: with family Additional living arrangements comments: HUSB Occupation/Education: retired Spiritual care concerns: No <Tsering Gil PA-C - Last Filed: 08/05/24 12:25> Exam 2 Narrative: GENERAL: Elderly, somewhat frail, non-toxic, in no acute distress. HEAD: Normocephalic, atraumatic. RESPIRATORY: Airway patent, respirations nonlabored. Clear to auscultation bilaterally, no rales, rhonchi, wheezing. CARDIOVASCULAR: Regular rate and rhythm without murmurs, rubs, or gallops. MUSCULOSKELETAL: Moves all extremities. No gross deformities. SKIN: Warm, dry, normal color. NEURO: A&O X3. Speech clear. Cranial nerves II-XII grossly intact. Steady gait. No ataxic movements. Diffusely tremulous throughout extremities. No focal deficits. PSYCHIATRIC: very anxious appearing. Normal interaction. <Vonnie Germain PA-C - Last Filed: 08/05/24 00:55> Course Vital Signs Vital signs: Vital Signs Temperature 97.9 F 08/04/24 16:57 Pulse Rate 88 08/04/24 16:57 Respiratory Rate 20 08/04/24 16:57 Blood Pressure 143/75 H 08/04/24 16:57 Pulse Oximetry 100 08/04/24 16:57 Oxygen Delivery Room Air 08/04/24 16:57 Temperature 98.2 F 08/04/24 21:16 Pulse Rate 60 08/04/24 21:16 Respiratory Rate 20 08/04/24 21:16 Blood Pressure 138/68 08/04/24 21:16 Pulse Oximetry 97 08/04/24 21:16 Oxygen Delivery Room Air 08/04/24 16:57 <Tsering Gil PA-C - Last Filed: 08/05/24 12:25> Vital Signs Temperature 97.9 F 08/04/24 16:57 Pulse Rate 88 08/04/24 16:57 Respiratory Rate 20 08/04/24 16:57 Blood Pressure 143/75 H 08/04/24 16:57 Pulse Oximetry 100 08/04/24 16:57 Oxygen Delivery Room Air 08/04/24 16:57 Temperature 98.2 F 08/04/24 21:16 Pulse Rate 60 08/04/24 21:16 Respiratory Rate 20 08/04/24 21:16 Blood Pressure 138/68 08/04/24 21:16 Pulse Oximetry 97 08/04/24 21:16 Oxygen Delivery Room Air 08/04/24 16:57 <Vonnie Germain PA-C - Last Filed: 08/05/24 00:55> Medical Decision Making MDM Narrative Medical decision making narrative: Patient presented to ED with anxiety, shakiness, dizziness. Symptoms have been ongoing for several weeks. She has seen her primary care doctor for this and was prescribed buspirone, but recently had the dose decreased. Vital signs are stable upon arrival. Patient is in no acute distress, she does appear visibly anxious. She was agreeable to a small dose of Ativan. Fluids also initiated. Basic laboratory studies are unremarkable. Stable electrolytes. Stable kidney function. TSH was recently checked within the last couple weeks and WNL. UA with 2+ ketones, 6-10 white blood cell count. No urine bacteria seen. Sent for culture. Patient denies any urinary complaints. Will defer treatment to culture results. CT brain is negative. Chest x-ray is clear. Patient was updated on lab and imaging results, overall reassuring workup. She is feeling immensely better after dose of Ativan. Feel she is safe for discharge home with close primary care follow-up. Recommended she contact primary care doctor to discuss anxiety medications. Will prescribe short course of Ativan for home use for panic episodes. Patient was given strict return precautions. She agrees with plan and feels comfortable with discharge home. Discharged in stable condition. <Vonnie Germain PA-C - Last Filed: 08/05/24 00:55> Medical Records Medical records reviewed: Yes I reviewed the external patient's medical records. <Vonnie Germain PA-C - Last Filed: 08/05/24 00:55> Vital Signs Vital Signs: Vital Signs Temperature 97.9 F 08/04/24 16:57 Pulse Rate 88 08/04/24 16:57 Respiratory Rate 20 08/04/24 16:57 Blood Pressure 143/75 H 08/04/24 16:57 Pulse Oximetry 100 08/04/24 16:57 Oxygen Delivery Room Air 08/04/24 16:57 Temperature 98.2 F 08/04/24 21:16 Pulse Rate 60 08/04/24 21:16 Respiratory Rate 20 08/04/24 21:16 Blood Pressure 138/68 08/04/24 21:16 Pulse Oximetry 97 08/04/24 21:16 Oxygen Delivery Room Air 08/04/24 16:57 <Tsering Gil PA-C - Last Filed: 08/05/24 12:25> Vital Signs Temperature 97.9 F 08/04/24 16:57 Pulse Rate 88 08/04/24 16:57 Respiratory Rate 20 08/04/24 16:57 Blood Pressure 143/75 H 08/04/24 16:57 Pulse Oximetry 100 08/04/24 16:57 Oxygen Delivery Room Air 08/04/24 16:57 Temperature 98.2 F 08/04/24 21:16 Pulse Rate 60 08/04/24 21:16 Respiratory Rate 20 08/04/24 21:16 Blood Pressure 138/68 08/04/24 21:16 Pulse Oximetry 97 08/04/24 21:16 Oxygen Delivery Room Air 08/04/24 16:57 <Vonnie Germain PA-C - Last Filed: 08/05/24 00:55> Lab Data Lab results reviewed: Yes I reviewed the patient's lab results. <Vonnie Germain PA-C - Last Filed: 08/05/24 00:55> Result diagrams: 08/04/24 19:50 08/04/24 19:50 <TOD Peterson Last Filed: 08/05/24 12:25> Labs: Lab Results 08/04/24 08/04/24 Range/Units 19:50 19:58 WBC 6.8 (4.5-10.0) K/mm3 RBC 4.50 (4.2-5.4) M/mm3 Hgb 14.1 (12.0-15.0) g/dL Hct 41.1 (37.0-47.0) % MCV 91.3 (80-100) fl MCH 31.3 (26-34) pg MCHC 34.3 (32-36) g/dl RDW 13.3 (11.5-14.5) % Plt Count 255 (150-375) k/mm3 MPV 9.4 (7.4-10.4) fl Immature Gran % (Auto) 0.1 (0-0.5) % Neut % (Auto) 52.3 (45.5-73.1) % Lymph % (Auto) 33.2 (18.3-44.2) % [place] % (Auto) 12.9 H (2.6-8.5) % Eos % (Auto) 0.6 (0-4.4) % Baso % (Auto) 0.9 (0.2-1.2) % Lymph # (Auto) 2.27 (0.9-3.2) K/mm3 [place] # (Auto) 0.9 H (0.1-0.6) K/mm3 Eos # (Auto) 0.0 (0-0.3) K/mm3 Baso # (Auto) 0.1 (0.0-0.1) K/mm3 Abs Immat Gran (auto) 0.01 (0.00-0.031) K/mm3 Absolute Neuts (auto) 3.6 (1.3-6.7) K/mm3 Absolute Nucleated RBC 0.000 (0.0-0.012) K/mm3 Nucleated RBC % 0.0 (0.0-0.2) % Sodium 138 (137-145) mmol/L Potassium 3.7 (3.4-5.0) mmol/L Chloride 104 (98-107) mmol/L Carbon Dioxide 24 (22-30) mmol/L Anion Gap 10 (4-12) mmol/L BUN 21 H (7-17) mg/dL Creatinine 0.60 L (0.7-1.0) mg/dL Estim Creat Clear Calc 60 ml/min Estimated GFR > 60 (59 - ) Glucose 114 H (65-110) mg/dL Calcium 9.7 (8.4-10.2) mg/dL Total Bilirubin 0.6 (0.2-1.3) mg/dL AST 37 H (14-36) U/L ALT 28 (6-35) U/L Alkaline Phosphatase 101 (38-126) U/L Total Protein 8.0 (6.3-8.2) g/dL Albumin 4.8 (3.5-5.1) g/dL Urine Color Yellow (Yellow) Urine Appearance Clear (Clear) Urine pH 6.0 (5.0-9.0) Ur Specific [place] 1.026 (1.001-1.035) Urine Protein Negative (Negative) mg/dL Urine Glucose (UA) Negative (Negative) mg/dL Urine Ketones 2+ H (Negative) mg/dL Ur Blood (Man) Negative (Negative) Urine Nitrate Negative (Negative) Urine Bilirubin Negative (Negative) Urine Urobilinogen 1.0 (<2.0) mg/dL Leukocyte Esterase Rfl 1+ H (Negative) SURI/UL Urine RBC 3-5 H (0-2) /hpf Urine WBC 6-10 H (0-3) /hpf Ur Squamous Epith Cells None seen (Few) /hpf Urine Bacteria None seen /hpf Urine Casts 0-2 <Tsering Gil PA-C - Last Filed: 08/05/24 12:25> Lab Results 08/04/24 08/04/24 Range/Units 19:50 19:58 WBC 6.8 (4.5-10.0) K/mm3 RBC 4.50 (4.2-5.4) M/mm3 Hgb 14.1 (12.0-15.0) g/dL Hct 41.1 (37.0-47.0) % MCV 91.3 (80-100) fl MCH 31.3 (26-34) pg MCHC 34.3 (32-36) g/dl RDW 13.3 (11.5-14.5) % Plt Count 255 (150-375) k/mm3 MPV 9.4 (7.4-10.4) fl Immature Gran % (Auto) 0.1 (0-0.5) % Neut % (Auto) 52.3 (45.5-73.1) % Lymph % (Auto) 33.2 (18.3-44.2) % [place] % (Auto) 12.9 H (2.6-8.5) % Eos % (Auto) 0.6 (0-4.4) % Baso % (Auto) 0.9 (0.2-1.2) % Lymph # (Auto) 2.27 (0.9-3.2) K/mm3 [place] # (Auto) 0.9 H (0.1-0.6) K/mm3 Eos # (Auto) 0.0 (0-0.3) K/mm3 Baso # (Auto) 0.1 (0.0-0.1) K/mm3 Abs Immat Gran (auto) 0.01 (0.00-0.031) K/mm3 Absolute Neuts (auto) 3.6 (1.3-6.7) K/mm3 Absolute Nucleated RBC 0.000 (0.0-0.012) K/mm3 Nucleated RBC % 0.0 (0.0-0.2) % Sodium 138 (137-145) mmol/L Potassium 3.7 (3.4-5.0) mmol/L Chloride 104 (98-107) mmol/L Carbon Dioxide 24 (22-30) mmol/L Anion Gap 10 (4-12) mmol/L BUN 21 H (7-17) mg/dL Creatinine 0.60 L (0.7-1.0) mg/dL Estim Creat Clear Calc 60 ml/min Estimated GFR > 60 (59 - ) Glucose 114 H (65-110) mg/dL Calcium 9.7 (8.4-10.2) mg/dL Total Bilirubin 0.6 (0.2-1.3) mg/dL AST 37 H (14-36) U/L ALT 28 (6-35) U/L Alkaline Phosphatase 101 (38-126) U/L Total Protein 8.0 (6.3-8.2) g/dL Albumin 4.8 (3.5-5.1) g/dL Urine Color Yellow (Yellow) Urine Appearance Clear (Clear) Urine pH 6.0 (5.0-9.0) Ur Specific [place] 1.026 (1.001-1.035) Urine Protein Negative (Negative) mg/dL Urine Glucose (UA) Negative (Negative) mg/dL Urine Ketones 2+ H (Negative) mg/dL Ur Blood (Man) Negative (Negative) Urine Nitrate Negative (Negative) Urine Bilirubin Negative (Negative) Urine Urobilinogen 1.0 (<2.0) mg/dL Leukocyte Esterase Rfl 1+ H (Negative) SURI/UL Urine RBC 3-5 H (0-2) /hpf Urine WBC 6-10 H (0-3) /hpf Ur Squamous Epith Cells None seen (Few) /hpf Urine Bacteria None seen /hpf Urine Casts 0-2 <Vonnie Germain PA-C - Last Filed: 08/05/24 00:55> Imaging Data Attestation: I personally reviewed and interpreted this imaging study as follows: < Vonnie Germain PA-C - Last Filed: 08/05/24 00:55> Radiologist's impression: ITS Impressions Chest X-Ray 08/04/24 17:37 IMPRESSION: No acute cardiopulmonary process. Head CT 08/04/24 20:41 IMPRESSION: No acute intracranial process. <Vonnie Germain PA-C - Last Filed: 08/05/24 00:55> ECG Data EKG #1: Attestation: I personally reviewed and interpreted this ECG as follows: <Vonnie Germain PA-C - Last Filed: 08/05/24 00:55> ECG completion date: 08/04/24 <Vonnie Germain PA-C - Last Filed: 08/05/24 00:55> EKG Interpretation: normal rate, sinus rhythm, no ST changes and other (baseline artifact) <Vonnie Germain PA-C - Last Filed: 08/05/24 00:55> Critical Care Time Critical Care Time Critical Care Time: No <Tsering Gil PA-C - Last Filed: 08/05/24 12:25> Discharge Plan Discharge Clinical Impression: Anxiety, Shakiness <Tsering Gil PA-C - Last Filed: 08/05/24 12:25> Patient Disposition: Home, Self-Care <Tsering Gil PA-C - Last Filed: 08/05/24 12:25> Condition: Stable <Tsering Gil PA-C - Last Filed: 08/05/24 12:25> Instructions: Antibiotic Form, Stress (ED), Panic Disorder (ED), Anxiety (ED) <TOD Peterson Last Filed: 08/05/24 12:25> Additional Instructions: Your workup here was reassuring. Continue home medications. Utilize Ativan as needed for more severe anxiety episodes. Follow-up closely with your primary care doctor for further evaluation and to discuss anxiety medications. Return to the ED if you experience worsening or severe symptoms, chest pain, difficulty breathing, or any other symptoms of concern. <Tsering Gil PA-C - Last Filed: 08/05/24 12:25> Patient Language: French <Tsering Gil PA-C - Last Filed: 08/05/24 12:25> Prescriptions: New lorazepam [Ativan] 0.5 mg tablet 0.5 mg PO BID PRN (Reason: anxiety) Qty: 5 0RF No Action cholecalciferol (vitamin D3) 25 mcg (1,000 unit) capsule 50 mcg PO DAILY buspirone 5 mg tablet 5 mg PO BID Qty: 60 5RF aspirin 81 mg tablet,delayed release (DR/EC) 81 mg PO DAILY multivitamin Tablet 1 tablet PO DAILY ascorbic acid (vitamin C) 1,000 mg tablet 1 g PO DAILY losartan 50 mg tablet 50 mg PO DAILY Qty: 30 5RF atorvastatin 10 mg tablet 10 mg PO DAILY Qty: 90 3RF amlodipine 5 mg tablet 5 mg PO DAILY Qty: 30 11RF Rx Instructions: AM escitalopram oxalate [Lexapro] 10 mg tablet 10 mg PO DAILY Qty: 30 11RF ondansetron HCl 4 mg tablet 4 mg PO Q8H PRN (Reason: nausea and vomiting) Qty: 30 0RF <Tsering Gil PA-C - Last Filed: 08/05/24 12:25> Follow-up/Referrals: Xochitl Shen NP [Primary Care Provider] - <Tsering Gil PA-C - Last Filed: 08/05/24 12:25> Time of Disposition: 22:08 <Tsering Gil PA-C - Last Filed: 08/05/24 12:25> 22:08 <Vonnie Germain PA-C - Last Filed: 08/05/24 00:55>
--- NOTE | 2024-08-04 17:03 | ECG_ITS ---
Test Date: 2024-08-04 19:31:32 Measurements Intervals [place] Rate: 67 P: 51 [place]: 141 QRS: -27 QRSD: 89 T: 64 QT: 375 QTc: 397 Interpretive Statements SINUS RHYTHM BORDERLINE LEFT AXIS DEVIATION [QRS AXIS < -20] POSSIBLE RIGHT VENTRICULAR CONDUCTION DELAY [RSR (QR) IN V1/V2] MINIMAL VOLTAGE CRITERIA FOR LVH, CONSIDER NORMAL VARIANT [MEETS CRITERIA IN ONE OF: R(aVL), S(V1), R(V5), R(V5/V6)+S(V1)] No previous ECG available for comparison Electronically Signed On 08-05-2024 18:47:12 RATER ASSOCIATE by Scarlett Chang
[2024-08-04 19:27] VITALS: BP 193/83; PULSE 73; PULSE 76; RESP 18; TEMP 36.8; O2SAT 97
[2024-08-04 19:58] LABS: Basophils Absolute Auto 0.1 K/mm3 (0.0-0.1); Basophils Percent Auto 0.9 % (0.2-1.2); Eosinophils Percent Auto 0.6 % (0-4.4); Hematocrit 41.1 % (37.0-47.0); Hemoglobin 14.1 g/dL (12.0-15.0); Immature Granulocyte Absolute 0.01 K/mm3 (0.00-0.031); Immature Granulocyte Percent A 0.1 % (0-0.5); Lymphocytes Absolute Auto 2.27 K/mm3 (0.9-3.2); Lymphocytes Percent Auto 33.2 % (18.3-44.2); Mean Corpuscular HGB Conc 34.3 g/dl (32-36); Mean Corpuscular Hemoglobin 31.3 pg (26-34); Mean Corpuscular Volume 91.3 fl (80-100); Mean Platelet Volume 9.4 fl (7.4-10.4); Monocytes Absolute Auto 0.9 K/mm3 (0.1-0.6); Monocytes Percent Auto 12.9 % (2.6-8.5); Neutrophils Absolute Auto 3.6 K/mm3 (1.3-6.7); Neutrophils Percent Auto 52.3 % (45.5-73.1); Platelet Count Result 255 k/mm3 (150-375); Red Cell Distribution Width 13.3 % (11.5-14.5); White Blood Count 6.8 K/mm3 (4.5-10.0)
[2024-08-04] MEDS: LORazepam INJ (*CRX) 2 MG/ML VIAL 0.5 MG IV PUSH (20:00)
[2024-08-04] MEDS: SODIUM CHLORIDE 0.9% IV 1,000 ML 999 ML IV CONT (20:02)
[2024-08-04 20:06] LABS: Add Urine Microscopic? YES; Appearance Urine Clear (Clear); Bacteria Urine None Seen /hpf; Bilirubin Urine Negative (Negative); Blood Urine Negative (Negative); Color Urine Yellow (Yellow); Glucose Urine UA Negative (Negative); Ketones Urine 2+ mg/dL (Negative); Leukocyte Esterase Ur 1+ LEU/UL (Negative); Nitrate Urine Negative (Negative); Non Pathogenic Casts 0-2; Protein Urine Negative (Negative); Specific Grav Ur 1.026 (1.001-1.035); Squamous Epithelial Cell Urine None Seen /hpf (Few)
[2024-08-04 20:09] LABS: Alanine Aminotransferase 28 U/L (6-35); Albumin Level 4.8 g/dL (3.5-5.1); Alkaline Phosphatase 101 U/L (38-126); Anion Gap 10 mmol/L (4-12); Aspartate Amino Transferase 37 U/L (14-36); Bilirubin,Total 0.6 mg/dL (0.2-1.3); Blood Urea Nitrogen 21 mg/dL (7-17); Calcium 9.7 mg/dL (8.4-10.2); Carbon Dioxide 24 mmol/L (22-30); Chloride 104 mmol/L (98-107); Estimated CRCL calculation 60 ml/min; Estimated Glomerular Filt Rate > 60; Glucose 114 mg/dL (65-110); Potassium 3.7 mmol/L (3.4-5.0); Sodium 138 mmol/L (137-145)
[2024-08-04 21:16] VITALS: BP 138/68; PULSE 60; RESP 20; TEMP 36.8; O2SAT 97
== END 2024-08-04 22:31 | disposition home or self-care (01) ==
PROVIDERS: Physician Assistant; Emergency Provider Physician Assistant; PCP Nurse Practitioner Family
DX: R42 Dizziness and giddiness (principal); F19.10 Other psychoactive substance abuse, uncomplicated; F41.9 Anxiety disorder, unspecified; Z79.82 Long term (current) use of aspirin; E55.9 Vitamin D deficiency, unspecified; E78.5 Hyperlipidemia, unspecified; I10 Essential (primary) hypertension; Z87.891 Personal history of nicotine dependence
CPT/HCPCS: 36415; 70450; 71046; 80053; 81001; 85025; 87086; 93005; 96361; 96374; 99284; J2060; J7030

== ENCOUNTER 2024-11-13 14:04 | Emergency (ER) | payer MEDICARE, SELFPAY ==
--- NOTE | ~2024-11-13 | CT_ITS ---
CT brain wo con Ordering provider: Rafael De La Cruz MD History: 73 years Female with . headache with visual changes . Comparison: August 04, 2024 Technique: CT of the head without contrast. Radiation reduction technique utilized. The dose-length p roduct was 605.33 mGy-cm FINDINGS: BRAIN PARENCHYMA AND CSF SPACES: Mild leukoaraiosis and diffuse cortical atrophy. Mild atheromatous d isease. No midline shift, mass effect or hemorrhage. The brain parenchyma and CSF spaces are otherwi se normal. VISUALIZED PARANASAL SINUSES: Well aerated. MASTOIDS: Well aerated. BONES: The bones appear intact. SOFT TISSUES: Visualized nasopharynx is normal. Superficial soft tissues are normal. IMPRESSION: No acute intracranial findings. Reviewed, dictated and finalized at location A.
--- NOTE | ~2024-11-13 | CT_ITS ---
CTA brain carotid Ordering provider: Nory Cantrell MD History: . SMITH x3 weeks, seeing van . Comparison: None. Technique: CT angiogram head and neck was performed following timed intravenous injection of contrast . Thin slice axial images and reformatted coronal images were obtained. Three dimensional reformatted images of the brain were also obtained using a [employer] workstation. FINDINGS: HEAD: --ANTERIOR AND MIDDLE CEREBRAL ARTERIES AND BRANCHES: Normal caliber and contour. --INTERNAL CAROTID ARTERIES: Moderate atheromatous disease bilaterally resulting in mild stenosis but no occlusion. --BASILAR ARTERY AND BRANCHES: Normal caliber and contour. No atheromatous disease. --POSTERIOR CEREBRAL ARTERIES: Normal caliber and contour --POSTERIOR COMMUNICATING ARTERIES: Not well visualized likely related to congenital absence or small size. --ANEURYSM: None visualized. --BRAIN: Please refer to report of CT head performed the same day. --BONES AND SUPERFICIAL SOFT TISSUES: Please refer to report of CT head performed the same day. --PARANASAL SINUSES AND MASTOIDS: Please refer to report of CT head done the same day. NECK: --RIGHT CERVICAL CAROTID SYSTEM: Mild atheromatous disease of the carotid bulb and proximal internal carotid artery without significant stenosis. Percent stenosis per NASCET criteria is 0%. No caroti d dissection. --LEFT CERVICAL CAROTID SYSTEM: Moderate atheromatous disease of the carotid bulb and proximal internal grinder tender al carotid artery. Percent stenosis per NASCET criteria is 11%. No carotid dissection. --VERTEBRAL ARTERIES: Normal caliber and contour. --VISUALIZED AORTIC ARCH AND BRANCHING VESSELS: Mild atheromatous disease but no significant stenosis . --SOFT TISSUES: Unremarkable. --CERVICAL SPINE: Age appropriate degenerative changes. IMPRESSION: Percent stenosis per NASCET criteria is 11% on the left and 0% on the right. Otherwise unremarkable CTA of the head and neck. Reviewed, dictated and finalized at location A.
[2024-11-13 14:15] VITALS: BP 154/72; PULSE 87; RESP 16; TEMP 36.8; O2SAT 98
--- OUTSIDE RECORDS SUMMARY | 2024-11-13 14:24 | XMS_ITS | Clinical Summary ---
Author Organization [facility] [place] [address] [facility] Address [address] [place] [address] Care Team Providers Care Service Dispatcher Name Role Phone Unavailable Primary Care Provider Unavailabl e Allergies Active Allergy Reactions Criticality Noted Date Comments Lisinopril Nausea only Low 01/13/2019 shaking, nausea Prednisone Other (See comments) Low 01/13/2019 skin red and purple Medications aspirin 81 mg enteric coated tablet Take 81 mg by mouth daily Active cholecalciferol , vitamin D3, (VITAMIN D3 ORAL) Take 1 tablet by mouth daily Active multivit-min/fe rrous fumarate (MULTI VITAMIN ORAL) Take 1 tablet by mouth daily Active ascorbic acid (VITAMIN C ORAL) Take 1 tablet by mouth daily Active hydroCHLOROthia zide (HYDRODIURIL) 25 mg tablet TAKE 1 TABLET BY MOUTH ONCE DAILY IN THE MORNING 90 tablet 1 10/19/2020 Active atorvastatin (LIPITOR) 10 mg tablet Take 1 tablet by mouth once daily 90 tablet 1 10/19/2020 Active Active Problems Problem Noted Date Diagnosed Date BMI 28.0-28.9,adult 01/29/2017 Assessment & Plan (10/19/2020 8:26 AM DINKEY LOCOMOTIVE ENGINEER): Improving, pt lost 8 lb. Assessment & Plan (04/13/2020 9:10 AM CDT): BMI Follow-up includes: nutrition counseling. Stress weight loss Pure hypercholesterolemia 01/29/2017 Assessment & Plan (10/18/2020 4:14 PM DINKEY LOCOMOTIVE ENGINEER): Well control on atorvastatin. Most recent lab done last March, lipid panel was normal with LDL 85, triglycerides 57. Will continue monitoring. Assessment & Plan (04/13/2020 9:09 AM CDT): Well controlled on atorvastatin. Overdue for labs, will do today Assessment & Plan (07/06/2019 9:54 AM DINKEY LOCOMOTIVE ENGINEER): Well controlled on atorvastatin. Overdue for labs, will do today Assessment & Plan (01/23/2019 6:42 AM CDT): Stable on atorvastatin Prediabetes 01/16/2016 Assessment & Plan (10/18/2020 4:15 PM DINKEY LOCOMOTIVE ENGINEER): Hemoglobin A1c was 6.1 last March. Will continue monitoring on annual basis. Assessment & Plan (04/13/2020 9:09 AM CDT): Due for labs. Will do today. Assessment & Plan (07/06/2019 9:55 AM DINKEY LOCOMOTIVE ENGINEER): HbA1c 5.9 in November, will cont monitoring. Assessment & Plan (01/23/2019 6:42 AM CDT): Stable. Hypertension 01/13/2016 Assessment & Plan (10/18/2020 4:11 PM DINKEY LOCOMOTIVE ENGINEER): Well controlled on hydrochlorothiazide. Assessment & Plan (04/13/2020 9:13 AM CDT): Well controlled on HCTZ. Assessment & Plan (07/06/2019 9:57 AM DINKEY LOCOMOTIVE ENGINEER): Well controlled on HCTZ. Assessment & Plan (01/23/2019 6:41 AM CDT): Stable on hydrochlorothiazide Immunizations Immunization Administration Dates Next Due Influenza, Trivalent, High D ose, Split, Preservative Free, Intramuscular 10/10/2019,07/16/2018 Influenza, Trivalent, Preservative Free, Intramu scular 06/07/2016,09/09/2012 Influenza, Unspecified 06/12/2016 Pneumococcal Conjugate PCV 13 01/29/2017 Pneumococcal Polysaccharide PPV23 07/06/2019 Surgical History Surgery Date Site/Laterality Comments CYSTECTOMY Left breast TONSILLECTOMY CERVICAL BIOPSY W/ LOOP ELECTRODE EXCISION Medical History Medical History Date Comments Hypertension Hypercholesterolemia Left hip pain Family History Medical History Relation Name Comments Diabetes Father Kidney disease Father Abdominal Aortic Aneurysm Mother COPD Mother Heart disease Mother Allergy (severe) Other Cancer Other Diabetes Other Heart disease Other Hypertension Other Kidney disease Other nervous illness Other Relation Name Status Comments Father Mother Other Social History Tobacco Use Types Packs/Day Years Used Date Smoking Tobacco: Former Cigarettes 1.5 5 1 966 1970 Smokeless Tobacco: Never Alcohol Use Standard Drinks/Week Comments Not Currently 0 (1 standard drink = 0.6 oz pur e alcohol) AUDIT-C Answer Date Recorded Q1: How often do you have a drink containing alc ohol? Never 10/19/2020 Average Number of Drinks Not on file 021 Q3: How often do you have si x or more drinks on one occasion? Never 10/19/2020 PHQ-2 Answer Date Recorded PHQ-2 Total Score 0 10/19/2020 Comments Unknown Sex and Gender Information Value Date Recorded Sex Assigned at Not on file Legal Sex Female 1:13 PM DINKEY LOCOMOTIVE ENGINEER Gender Identity Not on file Sexual Orientation Not on file Obstetrics History Last Filed Vital Signs Vital Sign Reading Time Taken Comments Blood Pressure 130/72 10/19/2020 8:08 AM DINKEY LOCOMOTIVE ENGINEER Pulse 72 10/19/2020 8:08 AM DINKEY LOCOMOTIVE ENGINEER Temperature 35.8 C (96.4 F) 10/19/2020 8:08 AM DINKEY LOCOMOTIVE ENGINEER Respiratory Rate 16 10/19/2020 8:08 AM DINKEY LOCOMOTIVE ENGINEER Oxygen Saturation 97% 10/19/2020 8:08 AM DINKEY LOCOMOTIVE ENGINEER Inhaled Oxygen Concentration - - Weight 73.3 kg (161 lb 9.6 oz) 10/19/2020 8:08 A M DINKEY LOCOMOTIVE ENGINEER Height 161.3 cm (5' 3.5 ) 10/19/2020 8:08 AM DINKEY LOCOMOTIVE ENGINEER Body Mass Index 28.18 10/19/2020 8:08 AM DINKEY LOCOMOTIVE ENGINEER Plan of Treatment Not on file Insurance [facility]
--- OUTSIDE RECORDS SUMMARY | 2024-11-13 14:24 | XMS_ITS | Referral Summary ---
Author Organization [facility] [place] 130 [facility] Address [address] [facility] [place] [address] Care Team Providers Care Chair Finisher Name Role Phone Unavailable Primary Care Provider [...] 01/29/2017 Assessment & Plan (10/19/2020 8:26 AM RN TRANSITIONAL CARE): Improving, pt lost 8 lb. Assessment & Plan (04/13/2020 9:10 AM CDT): BMI Follow-up includes: nutrition counseling. Stress weight loss Pure hypercholesterolemia 01/29/2017 Assessment & Plan (10/18/2020 4:14 PM RN TRANSITIONAL CARE): Well control on atorvastatin. Most recent lab done last March, lipid panel was normal with LDL 85, triglycerides 57. Will continue monitoring. Assessment & Plan (04/13/2020 9:09 AM CDT): Well controlled on atorvastatin. Overdue for labs, will do today Assessment & Plan (07/06/2019 9:54 AM RN TRANSITIONAL CARE): Well controlled on atorvastatin. Overdue for labs, will do today Assessment & Plan (01/23/2019 6:42 AM CDT): Stable on atorvastatin Prediabetes 01/16/2016 Assessment & Plan (10/18/2020 4:15 PM RN TRANSITIONAL CARE): Hemoglobin A1c was 6.1 last March. Will continue monitoring on annual basis. Assessment & Plan (04/13/2020 9:09 AM CDT): Due for labs. Will do today. Assessment & Plan (07/06/2019 9:55 AM RN TRANSITIONAL CARE): HbA1c 5.9 in November, will cont monitoring. Assessment & Plan (01/23/2019 6:42 AM CDT): Stable. Hypertension 01/13/2016 Assessment & Plan (10/18/2020 4:11 PM RN TRANSITIONAL CARE): Well controlled on hydrochlorothiazide. Assessment & Plan (04/13/2020 9:13 AM CDT): Well controlled on HCTZ. Assessment & Plan (07/06/2019 9:57 AM RN TRANSITIONAL CARE): Well controlled on HCTZ. Assessment & Plan (01/23/2019 6:41 AM CDT): Stable on hydrochlorothiazide Immunizations Immunization Administration Dates Next Due Influenza, Trivalent, High D ose, Split, Preservative Free, Intramuscular 10/10/2019,07/16/2018 Influenza, Trivalent, Preservative Free, Intramu scular 06/07/2016,09/09/2012 Influenza, Unspecified 06/12/2016 Pneumococcal Conjugate PCV 13 01/29/2017 Pneumococcal Polysaccharide PPV23 07/06/2019 Social History Tobacco Use Types Packs/Day Years Used Date Smoking Tobacco: Former Cigarettes 1.5 5 1 966 - 1971 Smokeless Tobacco: Never Alcohol Use Standard Drinks/Week [...] on file Legal Sex Female 1:13 PM RN TRANSITIONAL CARE Gender Identity Not on file Sexual Orientation Not on file Last Filed Vital Signs Vital Sign Reading Time Taken Comments Blood Pressure 130/72 10/19/2020 8:08 AM RN TRANSITIONAL CARE Pulse 72 10/19/2020 8:08 AM RN TRANSITIONAL CARE Temperature 35.8 C (96.4 F) 10/19/2020 8:08 AM RN TRANSITIONAL CARE Respiratory Rate 16 10/19/2020 8:08 AM RN TRANSITIONAL CARE Oxygen Saturation 97% 10/19/2020 8:08 AM RN TRANSITIONAL CARE Inhaled Oxygen Concentration - - Weight 73.3 kg (161 lb 9.6 oz) 10/19/2020 8:08 A M RN TRANSITIONAL CARE Height 161.3 cm (5' 3.5 ) 10/19/2020 8:08 AM RN TRANSITIONAL CARE Body Mass Index 28.18 10/19/2020 8:08 AM RN TRANSITIONAL CARE Plan of Treatment Not on file Insurance AETNA MEDICARE [facility] MEDIC[facility] Address: [facility] [id number] [place] [address]
--- NOTE | 2024-11-13 15:50 | ED_ITS ---
HPI - Headache General Chief Complaint: Headache <Eloisa Hart PA-C - Last Filed: 11/13/24 15:53> Stated Complaint: Headache x 3 weeks, vision sparkels <Eloisa Hart PA-C - Last Filed: 11/13/24 15:53> Time Seen by Provider: 11/13/24 17:05 <Eloisa Hart PA-C - Last Filed: 11/13/24 15:53> Focused HPI: 73 y/o F with a PMHx of anxiety, HLD, HTN Presents emergency department for headache for the past 3 weeks. Patient states the headache is located to the right hoahaoism, at times it has been from her forehead and the bridge of her nose but predominantly has been on the right hoahaoism. She states it is been mostly constant but has waxed and waned throughout the past 3 weeks. She notes that over the past 5 months she has had approximately 3-4 episodes of floaters in her vision. She describes it as a large mariella that appears in her vision and circles around like a circus , and at times will break off and smaller diamonds . She is unable to identify if the floaters appear in 1 eye or both eyes. She denies a sensation of recurrent coming in RI or diplopia. She has no recent injury or trauma to her head or eyes, no history of retinal detachment. She states she contacted her PCP told her PCP her symptoms and was advised to come to the ED for further evaluation. The patient states she has not had a sensation of floaters in her eyes for 2 days. She denies focal numbness or weakness. GENERAL: Well-appearing, well-nourished, and in no acute distress. HEAD: Normocephalic, atraumatic. CHEST: Clear to auscultation. ?No respiratory distress. HEART: Regular rate and rhythm.? NEURO: ?Alert and oriented x3. Patient screened in triage and initial orders placed.? ?Additional care and disposition to be based upon?diagnostic testing and treatment. <Eloisa Hart PA-C - Last Filed: 11/13/24 15:53> History of Present Illness HPI Narrative: Agree with the above with the following additions/corrections: She has been trying ibuprofen at home but had been told she should not use this. Patient notes the headache is along her right hoahaoism and she also feels it along the front of the right side of her face, described as a pressure. It is been occurring intermittently. She has been having photophobia she notes that the lights when she is in various supermarket/grocery stores are very harsh to her. She has been nauseated. No trauma preceded her headache although she does state that during this time she accidentally struck her head on a cabinet. Not on anticoagulation. No fevers. No neck pain. No phonophobia. Patient notes that 2-3 days ago she started having pain while chewing. She denies any eye pain. No 1 with similar symptoms. Wears glasses. <Nory Cantrell MD - Last Filed: 11/13/24 23:00> Related Data Home Medications: Home Medications ?Medication ?Instructions ?Recorded ?Confirmed ?Last Taken ?Type ascorbic acid (vitamin C) 1,000 mg 1 g PO DAILY 05/03/21 10/08/24 05/31/24 History tablet multivitamin 1 tablet PO DAILY 05/03/21 10/08/24 05/31/24 History cholecalciferol (vitamin D3) 25 50 mcg PO DAILY 09/26/23 10/08/24 05/31/24 History mcg (1,000 unit) capsule <Eloisa Hart PA-C - Last Filed: 11/13/24 15:53> Allergies/Adverse Reactions: Allergies Allergy/AdvReac Type Severity Reaction Status Date / Time prednisone Allergy Unknown Hives Verified 11/13/24 14:06 lisinopril AdvReac Severe Weakness, Verified 11/13/24 14:06 NAUSEAS, SHAKES <Eloisa Hart PA-C - Last Filed: 11/13/24 15:53> [facility] Past Medical History Medical History: Medical History BMI 21.0-21.9, adult Anxiety UTI (urinary tract infection) Low TSH level Palpitations Hypokalemia Shaking Arthralgia of hands, bilateral Left hip pain Fall Acute pain of right knee Elevated fasting glucose Use of cane as ambulatory aid Colon cancer screening Vitamin D deficiency Osteoarthritis of left hip Encounter to establish care Hyperlipidemia Fatigue Arthritis HTN (hypertension) <Eloisa Hart PA-C - Last Filed: 11/13/24 15:53> Surgical History Surgical History: Surgical History Hx of tonsillectomy H/O removal of cyst <Eloisa Hart PA-C - Last Filed: 11/13/24 15:53> Family History Family History: Family History Mother Asthma Sibling Asthma Cancer Father Diabetes mellitus Heart disease <Eloisa Hart PA-C - Last Filed: 11/13/24 15:53> Social History Social History: Social History Smoking packs per day: 2 Smoking cigarettes per day: 40.0 Years smoked: 5 Smoking pack-years: 10.00 Smoking status: Former smoker Tobacco type: cigarettes Smoking end date: 12/24/69 Alcohol intake: never Substance use: never Do You Feel Safe in your Home?: Yes Lack of Transportation: No Lack of Food: Never True Current Housing: I Have Housing Concerned About Future Housing: No Difficulty Paying Gas/Electric Bills: No Difficulty Paying for Meds: No Currently Unemployed: No Education: Don't Know Difficulty w/ Childcare or Family Care: No Living arrangements: with family Additional living arrangements comments: [facility] Occupation/Education: retired Spiritual care concerns: No <Eloisa Hart PA-C - Last Filed: 11/13/24 15:53> Exam 2 Narrative: GENERAL: Well-appearing, well-nourished, and in no acute distress. HEAD: Normocephalic, atraumatic. EYES: Non injected, non icteric. Extraocular movements intact without entrapment. PERRL. Fluorescein stain without abnormalities. Slit lamp without abnormalites. ENT: Nares clear, no rhinorrhea or epistaxis. NECK: Supple. No meningismus. Patient is able to flex and extend neck and perform rotational movement. CHEST: Speaking in full sentences. No respiratory distress. HEART: Regular rate and rhythm. . ABDOMEN: Soft, nondistended. EXTREMITIES: Normal range of motion. No lower extremity edema. SKIN: Warm, dry, no rash. NEURO: No focal deficits. Alert and oriented x3. Speaks clearly without aphasia or dysarthria. Patient mildly tremulous. Grossly symmetric face. Ambulates with cane, somewhat shaky/tremulous (has shakiness listed in PMH of EMR but also recently given compazine). PSYCH: Normal mood and affect. <Nory Cantrell MD - Last Filed: 11/13/24 23:00> Course Vital Signs Vital signs: Vital Signs Temperature 98.2 F 11/13/24 14:15 Pulse Rate 87 11/13/24 14:15 Respiratory Rate 16 11/13/24 14:15 Blood Pressure 154/72 H 11/13/24 14:15 Pulse Oximetry 98 11/13/24 14:15 Temperature 98.2 F 11/13/24 21:45 Pulse Rate 61 11/13/24 21:45 Respiratory Rate 15 11/13/24 21:45 Blood Pressure 150/72 H 11/13/24 21:45 Pulse Oximetry 100 11/13/24 21:45 <Eloisa Hart PA-C - Last Filed: 11/13/24 15:53> Vital Signs Temperature 98.2 F 11/13/24 14:15 Pulse Rate 87 11/13/24 14:15 Respiratory Rate 16 11/13/24 14:15 Blood Pressure 154/72 H 11/13/24 14:15 Pulse Oximetry 98 11/13/24 14:15 Temperature 98.2 F 11/13/24 21:45 Pulse Rate 61 11/13/24 21:45 Respiratory Rate 15 11/13/24 21:45 Blood Pressure 150/72 H 11/13/24 21:45 Pulse Oximetry 100 11/13/24 21:45 <Nory Cantrell MD - Last Filed: 11/13/24 23:00> MDM - Headache MDM Narrative Medical decision making narrative: Patient presents with intermittent headache of 3 weeks duration with vision changes initially described as sparkles and floaters but later described as a mariella visual field defect. Her headache is on the right with some frontal extension although primarily localized along her right hoahaoism. After obtaining the patient's history and performing a physical exam, the headache is most likely due to benign etiology. The extensive neurological examination is non-focal, , vital signs are stable (hypertension is mild), and the patient is non-toxic appearing. The Ddx for the patient's headache is tension headache, migraine, or other headache of non-emergent etiology. Of these what she describes does sound potentially consistent with scintillating scotoma associated with ocular migraine. Unlikely SAH: headache is non-thunderclap. Headache has been present intemittently x3 weeks, non-maximal at onset Unlikely subdural/epidural hematoma: no history of trauma, no anticoagulation Unlikely meningitis: afebrile, no meningismus, but with photophobia Unlikely acute angle glaucoma: PERRL, no eye pain Unlikely carbon monoxide poisoning: no other house members with similar symptoms However, Given the concern for Giant cell arteritis based on her temporal pain and reported jaw claudication, also ordered ESR and CRP. The patient's headache was treated symptomatically with APAP, benadryl, and compazine; ordered from triage. Noncontrast head CT was negative. She is still having a headache (although had just received the medication within the past 30 minutes) so IV fluids and ketorolac ordered. CRP normal . Visual acuity 20/50 in each eye. ESR normal. Discussed with Dr Vazquez (opthalmology) at [facility] at 20:30. They note that the recommendation is 250 mg of IV methylprednisolone Q 6 for a total of 12 doses (i.e. 3 days). Given this they would need to be admitted They do note that this is a time critical diagnosis and recommend emergency department to emergency department transfer as a result. Lists allergy to prednisone but has been premedicated with diphenhydramine. Spoke with Dr Tao Holliday ED physician at [facility] at 20:40. Time critical diagnosis. Discussed the concern with the patient and the reason for recommendation for transfer. She verifies understand. She does note that she is hungry and is told that she can eat. EMS transportation arranged. <Nory Cantrell MD - Last Filed: 11/13/24 23:00> Lab Data Attestation: I reviewed the patient's lab results. <Nory Cantrell MD - Last Filed: 11/13/24 23:00> Result diagrams: 11/13/24 17:55 <Eloisa Hart PA-C - Last Filed: 11/13/24 15:53> Labs: Lab Results 11/13/24 Range/Units 17:55 ESR 16 (0-20) mm/hr Creatinine 0.62 L (0.7-1.0) mg/dL Estim Creat Clear Calc 59 ml/min Estimated GFR > 60 (59 - ) C-Reactive Protein < 0.5 (<1.0) mg/dL <Eloisa Hart PA-C - Last Filed: 11/13/24 15:53> Lab Results 11/13/24 Range/Units 17:55 ESR 16 (0-20) mm/hr Creatinine 0.62 L (0.7-1.0) mg/dL Estim Creat Clear Calc 59 ml/min Estimated GFR > 60 (59 - ) C-Reactive Protein < 0.5 (<1.0) mg/dL <Nory Cantrell MD - Last Filed: 11/13/24 23:00> Imaging Data Radiologist's impression: Impressions Head CT 11/13/24 14:39 IMPRESSION: No acute intracranial findings. Head/Neck CTA 11/13/24 20:00 IMPRESSION: Percent stenosis per NASCET criteria is 11% on the left and 0% on the right. Otherwise unremarkable CTA of the head and neck. <Nory Cantrell MD - Last Filed: 11/13/24 23:00> Discharge Plan Discharge Clinical Impression: Left carotid stenosis, Headache, Blurred vision <Eloisa Hart PA-C - Last Filed: 11/13/24 15:53> Patient Disposition: Acute Care Hospital <Eloisa Hart PA-C - Last Filed: 11/13/24 15:53> Condition: Stable <Eloisa Hart PA-C - Last Filed: 11/13/24 15:53> Patient Language: Botswanan <Eloisa Hart PA-C - Last Filed: 11/13/24 15:53> Prescriptions: No Action cholecalciferol (vitamin D3) 25 mcg (1,000 unit) capsule 50 mcg PO DAILY lorazepam [Ativan] 0.5 mg tablet 0.5 mg PO BID PRN (Reason: anxiety) Qty: 180 1RF amlodipine 5 mg tablet 5 mg PO DAILY Qty: 90 3RF Rx Instructions: AM losartan 50 mg tablet 50 mg PO DAILY Qty: 90 3RF sertraline 25 mg tablet 25 mg PO DAILY Qty: 90 3RF multivitamin Tablet 1 tablet PO DAILY ascorbic acid (vitamin C) 1,000 mg tablet 1 g PO DAILY atorvastatin 10 mg tablet 10 mg PO DAILY Qty: 90 3RF ondansetron HCl 4 mg tablet 4 mg PO Q8H PRN (Reason: nausea and vomiting) Qty: 30 0RF <Eloisa Hart PA-C - Last Filed: 11/13/24 15:53> Follow-up/Referrals: Xochitl Shen, ROCÍO [Primary Care Provider] - <Eloisa Hart PA-C - Last Filed: 11/13/24 15:53>
[2024-11-13] MEDS: ACETAMINOPHEN 325 MG TABLET 650 MG PO (17:16)
[2024-11-13] MEDS: PROCHLORPERAZINE MALEATE 5 MG TABLET 10 MG PO (17:18)
[2024-11-13] MEDS: diphenhydrAMINE HCl CAP 25 MG CAPSULE PO (17:18)
--- OUTSIDE RECORDS SUMMARY | 2024-11-13 17:24 | XMS_ITS | Referral Summary ---
Author Organization [facility] [place] 130 [facility] Address [address] [facility] [place] [address] Care Team Providers Care Senior Science Consultant Name Role Phone Unavailable Primary Care Provider [...] 01/29/2017 Assessment & Plan (10/19/2020 8:26 AM AGENT BROKER): Improving, pt lost 8 lb. Assessment & Plan (04/13/2020 9:10 AM CDT): BMI Follow-up includes: nutrition counseling. Stress weight loss Pure hypercholesterolemia 01/29/2017 Assessment & Plan (10/18/2020 4:14 PM AGENT BROKER): Well control on atorvastatin. Most recent lab done last March, lipid panel was normal with LDL 85, triglycerides 57. Will continue monitoring. Assessment & Plan (04/13/2020 9:09 AM CDT): Well controlled on atorvastatin. Overdue for labs, will do today Assessment & Plan (07/06/2019 9:54 AM AGENT BROKER): Well controlled on atorvastatin. Overdue for labs, will do today Assessment & Plan (01/23/2019 6:42 AM CDT): Stable on atorvastatin Prediabetes 01/16/2016 Assessment & Plan (10/18/2020 4:15 PM AGENT BROKER): Hemoglobin A1c was 6.1 last March. Will continue monitoring on annual basis. Assessment & Plan (04/13/2020 9:09 AM CDT): Due for labs. Will do today. Assessment & Plan (07/06/2019 9:55 AM AGENT BROKER): HbA1c 5.9 in November, will cont monitoring. Assessment & Plan (01/23/2019 6:42 AM CDT): Stable. Hypertension 01/13/2016 Assessment & Plan (10/18/2020 4:11 PM AGENT BROKER): Well controlled on hydrochlorothiazide. Assessment & Plan (04/13/2020 9:13 AM CDT): Well controlled on HCTZ. Assessment & Plan (07/06/2019 9:57 AM AGENT BROKER): Well controlled on HCTZ. Assessment & Plan [...] on file Legal Sex Female 1:13 PM AGENT BROKER Gender Identity Not on file Sexual Orientation Not on file Last Filed Vital Signs Vital Sign Reading Time Taken Comments Blood Pressure 130/72 10/19/2020 8:08 AM AGENT BROKER Pulse 72 10/19/2020 8:08 AM AGENT BROKER Temperature 35.8 C (96.4 F) 10/19/2020 8:08 AM AGENT BROKER Respiratory Rate 16 10/19/2020 8:08 AM AGENT BROKER Oxygen Saturation 97% 10/19/2020 8:08 AM AGENT BROKER Inhaled Oxygen Concentration - - Weight 73.3 kg (161 lb 9.6 oz) 10/19/2020 8:08 A M AGENT BROKER Height 161.3 cm (5' 3.5 ) 10/19/2020 8:08 AM AGENT BROKER Body Mass Index 28.18 10/19/2020 8:08 AM AGENT BROKER Plan of Treatment Not on file Insurance AETNA MEDICARE [facility] MEDICARE Address: [facility] [address] [place] [address]
--- OUTSIDE RECORDS SUMMARY | 2024-11-13 17:24 | XMS_ITS | Clinical Summary ---
Author Organization [facility] [place] 130 [facility] Address [address] [facility] [place] [address] Care Team Providers Care Platform Architect Name Role Phone Unavailable Primary Care Provider [...] 01/29/2017 Assessment & Plan (10/19/2020 8:26 AM DATA DESIGNER): Improving, pt lost 8 lb. Assessment & Plan (04/13/2020 9:10 AM CDT): BMI Follow-up includes: nutrition counseling. Stress weight loss Pure hypercholesterolemia 01/29/2017 Assessment & Plan (10/18/2020 4:14 PM DATA DESIGNER): Well control on atorvastatin. Most recent lab done last March, lipid panel was normal with LDL 85, triglycerides 57. Will continue monitoring. Assessment & Plan (04/13/2020 9:09 AM CDT): Well controlled on atorvastatin. Overdue for labs, will do today Assessment & Plan (07/06/2019 9:54 AM DATA DESIGNER): Well controlled on atorvastatin. Overdue for labs, will do today Assessment & Plan (01/23/2019 6:42 AM CDT): Stable on atorvastatin Prediabetes 01/16/2016 Assessment & Plan (10/18/2020 4:15 PM DATA DESIGNER): Hemoglobin A1c was 6.1 last March. Will continue monitoring on annual basis. Assessment & Plan (04/13/2020 9:09 AM CDT): Due for labs. Will do today. Assessment & Plan (07/06/2019 9:55 AM DATA DESIGNER): HbA1c 5.9 in November, will cont monitoring. Assessment & Plan (01/23/2019 6:42 AM CDT): Stable. Hypertension 01/13/2016 Assessment & Plan (10/18/2020 4:11 PM DATA DESIGNER): Well controlled on hydrochlorothiazide. Assessment & Plan (04/13/2020 9:13 AM CDT): Well controlled on HCTZ. Assessment & Plan (07/06/2019 9:57 AM DATA DESIGNER): Well controlled on HCTZ. Assessment & Plan [...] on file Legal Sex Female 1:13 PM DATA DESIGNER Gender Identity Not on file Sexual Orientation Not on file Obstetrics History Last Filed Vital Signs Vital Sign Reading Time Taken Comments Blood Pressure 130/72 10/19/2020 8:08 AM DATA DESIGNER Pulse 72 10/19/2020 8:08 AM DATA DESIGNER Temperature 35.8 C (96.4 F) 10/19/2020 8:08 AM DATA DESIGNER Respiratory Rate 16 10/19/2020 8:08 AM DATA DESIGNER Oxygen Saturation 97% 10/19/2020 8:08 AM DATA DESIGNER Inhaled Oxygen Concentration - - Weight 73.3 kg (161 lb 9.6 oz) 10/19/2020 8:08 A M DATA DESIGNER Height 161.3 cm (5' 3.5 ) 10/19/2020 8:08 AM DATA DESIGNER Body Mass Index 28.18 10/19/2020 8:08 AM DATA DESIGNER Plan of Treatment Not on file Insurance [facility] MEDIC[facility]
[2024-11-13] MEDS: SODIUM CHLORIDE 0.9% IV 1,000 ML 999 ML IV CONT (17:54)
[2024-11-13 18:32] LABS: CRP < 0.5 mg/dL (<1.0)
[2024-11-13 18:46] LABS: Estimated CRCL calculation 59 ml/min; Estimated Glomerular Filt Rate > 60
[2024-11-13 19:32] LABS: Erythrocyte Sedimentation Rate 16 mm/hr (0-20)
[2024-11-13 19:45] VITALS: BP 128/58; PULSE 55; RESP 14; O2SAT 99
[2024-11-13 21:45] VITALS: BP 150/72; PULSE 61; RESP 15; TEMP 36.8; O2SAT 100
== END 2024-11-13 22:45 | disposition short-term general hospital (02) ==
PROVIDERS: Emergency Provider Student in an Organized Health Care Education/Training Program; PCP Nurse Practitioner Family
DX: I65.22 Occlusion and stenosis of left carotid artery (principal); R51.9 Headache, unspecified; H53.8 Other visual disturbances; I10 Essential (primary) hypertension; E55.9 Vitamin D deficiency, unspecified; E78.5 Hyperlipidemia, unspecified; M16.12 Unilateral primary osteoarthritis, left hip; M19.90 Unspecified osteoarthritis, unspecified site; F41.9 Anxiety disorder, unspecified; Z87.440 Personal history of urinary (tract) infections; Z87.891 Personal history of nicotine dependence; Z79.899 Other long term (current) drug therapy
CPT/HCPCS: 36415; 70450; 70496; 70498; 82565; 85652; 86140; 96361; 96365; 99285; A9270; J2919; J7030; Q9967